=== PATIENT | female | born 1955 | race Caucasian/White ===

== ENCOUNTER 2016-08-07 13:59 | Emergency (ER) | payer BC ==
[~2016-08-07] VITALS: Ht 165.1 cm; Wt 85.2 kg
[~2016-08-07 13:59] MED LIST: GLUCTAB7 PO; SUMA100T16 PO
[2016-08-07 14:05] VITALS: TEMP 36.9; Ht 165.1 cm; Wt 85.2 kg
[2016-08-07] MEDS ORDERED: KETOROLAC TROMETHAMINE 60 MG/2 ML VIAL IM STA (14:35)
[2016-08-07] MEDS ORDERED: PROMETHAZINE HCL INJ 25 MG/ML 1 ML VIAL IM STA (14:35)
[2016-08-07] MEDS ORDERED: HYDROmorphone INJ 1 MG/ML SYR IM STA (14:35)
[2016-08-07 15:26] VITALS: BP 106/63; PULSE 78; O2SAT 94
--- NOTE | 2016-08-07 18:09 | EMERGENCY ROOM VISIT NOTE ---
ED Visit Note First contact with patient: 14:22 CHIEF COMPLAINT: Migraine headache HISTORY OF PRESENT ILLNESS: This 7-year-old female patient presented to the emergency department with a gradual onset of a severe generalized headache that started yesterday. The patient states the migraine is similar to their typical migraines. There has been associated photophobia, phonophobia, nausea and vomiting. The patient denies fever or chills recently, and there is no weakness or numbness of the extremities. There is no difficulty with speech or vision. No trauma to the head and no neck pain. The pain is severe, constant, and it is slowly increasing in severity. The patient rates the pain as sharp and 7/10. The patient attempted at home Imitrex shots, however her injector malfunctioned , and misfired the medication. This was her last dose on this refill. This is not the worst headache of the life and is similar to previous migraines. Previous imaging studies of the brain have been normal. REVIEW OF SYSTEMS: A review of systems was performed with positives and pertinent negatives listed in the history of present illness. All other systems were reviewed and are negative. ALLERGIES: No known allergies MEDICATIONS: Imitrex PMH: Chronic migraines SOCIAL HISTORY: Lives with family PHYSICAL EXAM: Vital Signs: Reviewed Nurse's notes, vital signs stable. GENERAL: White female, who appears in pain, but non toxic in appearance and in no acute distress. MENTAL STATUS: Alert, oriented, and coherent. HEENT: Normocephalic. PERRLA. EOMI. Nares patent without nuchal rigidity. Tympanic membranes pearly cervantes without erythema or effusion bilaterally. Mucous membranes moist. NECK: Supple, no nuchal rigidity, nontender, no lymphadenopathy. HEART: Regular rhythm and normal rate without murmurs, ectopy, gallops, or rubs. LUNGS: Clear to auscultation bilaterally without wheezes, rales or rhonchi. No dullness to percussion. No accessory muscle use. No retractions. SKIN: Normal. NEUROLOGICAL: Pupils are round, equal and react to light. The optic fundi are normal and the discs are flat. The patient moves all extremities well and the gait is normal. EMERGENCY DEPARTMENT COURSE: I examined the patient. The patient is not on any formal treatment plan at this facility for her migraines, although she has been seen several times in the past for similar episodes.. The patient was given 3 mg IM Dilaudid, 60 mg IM Toradol, 25 mg IM Phenergan per their usual protocol. The differential diagnosis includes acute intracranial bleed, meningitis, encephalitis, mass or mass effect, sinusitis, infection, tumor, headache, temporal arteritis and carbon monoxide exposure, and migraine. The patient was discharged home in stable condition with a male ink blender driving. Problem List Medical Problems: (1) Migraine Status: Chronic (2) Migraine Status: Resolved Current/Historical Medications Scheduled Vgqxcgcirzr-Mjdmczhwxco-Gxg C- (Glucosamine Chondroitin), 1 TAB PO QAM Sumatriptan Succinate (Imitrex), 100 MG PO PRN Sumatriptan Succinate (Imitrex Statdose), 1 SC PRN Topiramate (Topamax), 100 MG PO QAM Scheduled PRN Ibuprofen-Diphenhydramine Citr (Advil Pm), 1 TAB PO HS PRN for SLEEP/PAIN Allergies Coded Allergies: No Known Allergies (Unverified , 08/07/16) Vital Signs Date Time Temp Pulse Resp B/P Pulse Ox O2 Delivery O2 Flow Rate FiO2 08/07/16 15:26 78 16 106/63 94 Room Air 08/07/16 14:05 36.9 79 18 134/88 95 Room Air Medications Administered Medications (Trade) Dose Ordered Sig/Mk Route Start Time Stop Time Status Last Admin Dose Admin Hydromorphone HCl (Dilaudid Inj) 3 mg NOW STAT IM 08/07/16 14:35 08/07/16 14:37 DC 08/07/16 14:58 3 MG Promethazine HCl (Phenergan Inj) 25 mg NOW STAT IM 08/07/16 14:35 08/07/16 14:37 DC 08/07/16 14:59 25 MG Ketorolac Tromethamine (Toradol Inj) 60 mg NOW STAT IM 08/07/16 14:35 08/07/16 14:37 DC 08/07/16 14:58 60 MG Departure Information Impression Primary Impression: Migraine Dispostion Home / Self-Care Condition GOOD Referrals Matthew Rogers M.D. (PCP) Forms HOME CARE DOCUMENTATION FORM, IMPORTANT VISIT INFORMATION Patient Instructions My [facility] Additional Instructions You were seen and evaluated today on an emergency basis only. This is not a substitute for, or an effort to provide, complete comprehensive medical care. It is not possible to recognize and treat all injuries or illnesses in a single emergency department visit. For this reason it is recommended that you followup with your primary care physician or neurologist this week for ongoing care and evaluation. DO NOT drive, drink alcohol, operate machinery, or perform dangerous activities today. You were given medications in the ER that can affect your ability to safely function or operate a vehicle. Rest today in a quiet, peaceful, dark environment and get a full 8-10 hrs of sleep tonight. Avoid loud noises, smoke/smoking, alcohol, bright lights, stress, or physical exertion today to minimize the chance the headache may return. Continue current medications. Ibuprofen(Motrin, Advil) may be used for fever or pain. Use 600mg every six hours as needed. Take with food. Avoid using more than 2400mg in a 24 hour period. Do not use 2400mg per day for more than three consecutive days without physician direction. Prolonged inappropriate use can lead to stomach upset or ulcers. (AND/OR) Acetaminophen(Tylenol) may be used for fever or pain. Use 1000mg every six hours as needed. Avoid using more than 4000mg in a 24 hour period. Return to the ER for passing out, worsening headache, vision problems, neck stiffness/pain, fevers, vomiting, worsening of your condition, or as needed.
[2017-01-05] MEDS ORDERED: IBUP1TAB PO (09:13)
[2017-01-05] MEDS ORDERED: SUMA100T16 PO (10:05)
[2017-01-05] MEDS ORDERED: TOPI100T20 PO (10:05)
== END 2016-08-07 15:27 | disposition home or self-care (01) ==
LOC: C.EDB 14:00 → C.EDD 15:27
DX: G43.909 Migraine, unspecified, not intractable, without status migrainosus (principal); Z79.899 Other long term (current) drug therapy

== ENCOUNTER → 2016-08-20 | Outpatient (CLI) | payer BC ==
[~2016-08-20] MED LIST changes: +BUPR-83 PO; +IBUP1TAB PO; +LPT10 PO; +RSP1 PO; +SUMA6KIT2 SC; +TOPI100T20 PO
--- NOTE | 2016-08-20 13:34 | MAMMOGRAPHY REPORT ---
BILATERAL DIGITAL SCREENING MAMMOGRAM TOMOSYNTHESIS WITH CAD: 08/20/2016 TECHNIQUE: Breast tomosynthesis in addition to standard 2D mammography was performed. Current study was also evaluated with a Computer Aided Detection (CAD) system. COMPARISON: Comparison is made to exams dated: 08/19/2015 mammogram, 08/14/2014 mammogram, 04/27/2013 mammogram, 04/26/2012 mammogram, and 02/25/2015 mammogram - [facility]. BREAST COMPOSITION: The tissue of both breasts is heterogeneously dense, which may obscure small ma sses. FINDINGS: No suspicious masses, calcifications, or areas of architectural distortion are noted in e ither breast. There has been no significant interval change compared to prior exams. IMPRESSION: ACR BI-RADS CATEGORY 1: NEGATIVE There is no mammographic evidence of malignancy. A 1 year screening mammogram is recommended. The p atient will receive written notification of the results. Approximately 10% of breast cancers are not detected with mammography. A negative mammographic repor t should not delay biopsy if a clinically suggestive mass is present. Jennifer Stover M.D. ah/:08/20/2016 12:08:21 Sow Manager: Amanda ALONSO(R)(M), [facility] letter sent: Normal 1/2 BI-RADS Code: ACR BI-RADS Category 1: Negative
== END | disposition home or self-care (01) ==
LOC: C.MAMM 08:52
PROVIDERS: ATTEND Family Medicine
DX: Z12.31 Encounter for screening mammogram for malignant neoplasm of breast (principal)

== ENCOUNTER → 2016-10-27 | Outpatient (CLI) | payer BC | END | disposition home or self-care (01) | LOC: C.PAPS 08:46 | PROVIDERS: ATTEND Obstetrics & Gynecology | DX: Z01.419 Encounter for gynecological examination (general) (routine) without abnormal findings (principal); N95.2 Postmenopausal atrophic vaginitis ==

== ENCOUNTER 2017-01-05 10:54 | Emergency (ER) | payer BC ==
[~2017-01-05] VITALS: Ht 165.1 cm; Wt 84.9 kg
[~2017-01-05 10:54] MED LIST changes: -BUPR-83 PO; -LPT10 PO; -RSP1 PO; -SUMA6KIT2 SC
[2017-01-05 10:56] VITALS: TEMP 37; Ht 165.1 cm; Wt 84.9 kg
[2017-01-05] MEDS ORDERED: PROMETHAZINE HCL INJ 25 MG in SODIUM CHLORIDE 0.9% 50ML 50 ML IV STA (11:12)
[2017-01-05] MEDS ORDERED: HYDROmorphone INJ 1 MG/ML SYR IV STA ×2 (11:12→11:59)
[2017-01-05] MEDS ORDERED: KETOROLAC TROMETHAMINE 30 MG/ML VIAL IV STA (11:12)
[2017-01-05] MEDS ORDERED: SODIUM CHLORIDE 0.9% 1000ML 1,000 ML IV STA (11:12)
[2017-01-05] MEDS ORDERED: BUPR-83 PO (11:13)
[2017-01-05] MEDS ORDERED: RSP1 PO (11:14)
[2017-01-05] MEDS ORDERED: LPT10 PO (11:14)
--- NOTE | 2017-01-05 11:16 | EMERGENCY ROOM VISIT NOTE ---
History Report prepared by Julieta: Palmira Costa Under the Supervision of: Dr. Calvin Whitlock M.D. First contact with patient: 11:06 Chief Complaint: HEADACHE Stated Complaint: MIGRAINE History of Present Illness The patient is a 61 year old female who presents to the Emergency Room with complaints of a migraine starting yesterday afternoon. The patient states that her pain is also radiating to the back of her neck but that this is a normal symptom when she gets migraines. The patient denies having other symptoms. Source of History: patient Onset: yesterday afternoon Position: other (global) Quality: other (migraine ) Timing: constant Associated Symptoms: + neck pain, No fevers Review of Systems See HPI for pertinent positives & negatives. A total of 10 systems reviewed and were otherwise negative. Past Medical & Surgical Medical Problems: (1) Migraine (2) Migraine Family History Cancer Heart disease Hypertension Kidney disease Kidney stones Social History Smoking Status: Never Smoker Alcohol Use: none Marital Status: Occupation Status: unemployed Current/Historical Medications Scheduled Atorvastatin (Atorvastatin Calcium), 10 MG PO DAILY Bupropion (Wellbutrin), 200 MG PO BID Risperidone (Risperidone), 1 MG PO DAILY Sumatriptan Succinate (Imitrex), 100 MG PO PRN Sumatriptan Succinate (Imitrex Statdose), 1 SC PRN Topiramate (Topamax), 100 MG PO QAM Scheduled PRN Ibuprofen-Diphenhydramine Citr (Advil Pm), 1 TAB PO HS PRN for SLEEP/PAIN Allergies Coded Allergies: No Known Allergies (Unverified , 01/05/17) Physical Exam Vital Signs Date Time Temp Pulse Resp B/P (MAP) Pulse Ox O2 Delivery O2 Flow Rate FiO2 01/05/17 14:09 77 16 119/85 96 01/05/17 12:30 86 16 152/93 97 Room Air 01/05/17 10:56 37.0 83 18 159/97 97 Room Air Physical Exam GENERAL: Patient is a healthy-appearing well-nourished female HEAD: Normocephalic atraumatic. No evidence of meningitis or encephalitis upon examination. EYES: Ocular movements intact pupils equal and react to light OROPHARYNX mucous membranes are moist no exudates present no erythema or edema present NECK: Supple no nuchal rigidity. CHEST: Good equal expansion LUNGS: Clear and equal to auscultation CARDIAC: Normal S1 and S2 ABDOMEN: Soft nontender no guarding BACK: No CVA tenderness EXTREMITIES: No pain upon palpation normal muscle strength in all groups no clubbing cyanosis or edema NEURO: Patient is following commands and answering questions appropriately. Alert and oriented x3 Cranial Nerves 2-12 grossly intact Medical Decision & Procedures Medications Administered Medications (Trade) Dose Ordered Sig/Mk Route Start Time Stop Time Status Last Admin Dose Admin Sodium Chloride 1,000 ml @ 999 mls/hr Q1H1M STAT IV 01/05/17 11:12 01/05/17 12:12 DC 01/05/17 11:41 999 MLS/HR Ketorolac Tromethamine (Toradol Inj) 30 mg NOW STAT IV 01/05/17 11:12 01/05/17 11:14 DC 01/05/17 11:42 30 MG Promethazine HCl 25 mg/Sodium Chloride 51 ml @ 204 mls/hr NOW STAT IV 01/05/17 11:12 01/05/17 11:26 DC 01/05/17 11:41 204 MLS/HR Hydromorphone HCl (Dilaudid Inj) 1 mg NOW STAT IV 01/05/17 11:12 01/05/17 11:14 DC 01/05/17 11:42 1 MG Hydromorphone HCl (Dilaudid Inj) 1 mg NOW STAT IV 01/05/17 11:59 01/05/17 12:01 DC 01/05/17 12:19 1 MG Magnesium Sulfate (Magnesium Sulfate) 1 gm NOW STAT IV 01/05/17 11:59 01/05/17 12:01 DC 01/05/17 12:20 1 GM Dexamethasone Sodium Phosphate (Decadron Inj) 10 mg NOW ONCE IV 01/05/17 12:00 01/05/17 12:01 DC 01/05/17 12:19 10 MG ED Course 1108: Past medical records reviewed. The patient was evaluated in room A12. A complete history and physical examination was performed. 1112: Ordered Dilaudid Inj 1 mg IV, Promethazine HCl 25 mg/Sodium Chloride 51 ml @ 204 mls/hr IV, Toradol Inj 30 mg IV, Sodium Chloride 1,000 ml @ 999 mls/hr IV. 1159: Ordered Magnesium Sulfate 1 gm IV, Dilaudid Inj 1 mg IV, Decadron Inj 10 mg IV. 1240: I checked on the patient and she is feeling better. 1345: Upon reexamination the patient is resting. I discussed results and treatment plan with the patient. She verbalizes agreement and understanding. The patient is ready for discharge. Medical Decision Differential diagnosis: Etiologies such as migraine headache, meningitis, sinusitis, CO exposure, ICH, SAH, infection, tumor, headache, sinus thrombosis, arterial dissection, as well as others were entertained. This is a 61-year-old female who presents emergency department complaining of headache. The patient has no evidence of meningitis encephalitis on examination. The patient has a history of headaches in the past and is prior imaging. An IV was established, patient given Toradol, Phenergan, Dilaudid. Repeat examination revealed some improvement in the patient's symptoms. The patient was then given Dilaudid Decadron and magnesium with improvement the patient's symptoms. I do feel she can be safely discharged home for follow-up with the primary care physician patient was in agreement with the treatment plan. Medication Reconcilliation Current Medication List: was personally reviewed by me Blood Pressure Screening Patient's blood pressure: Elevated blood pressure Blood pressure disposition: Referred to PCP Impression Primary Impression: Headache Scribe Attestation The scribe's documentation has been prepared under my direction and personally reviewed by me in its entirety. I confirm that the note above accurately reflects all work, treatment, procedures, and medical decision making performed by me. Departure Information Dispostion Home / Self-Care Referrals Matthew Rogers M.D. (PCP) Forms HOME CARE DOCUMENTATION FORM, IMPORTANT VISIT INFORMATION, School Instructions, Work Instructions Patient Instructions Headache Pain, My [facility] Additional Instructions You were found to have an elevated blood pressure today (>120 sytolic or >90 diastolic). Per medicare guidelines, you need to follow up with this blood pressure screening with your Primary Care Physician (PCP). For a new PCP call [phone]. You received narcotic or benzodiazepene medication while in the emergency room today. Do not drive, operate heavy machinery, or drink alcohol under the influence of this medication. You have been examined and treated today on an emergency basis only. This is not a substitute for, or an effort to provide, complete comprehensive medical care. It is impossible to recognize and treat all injuries or illnesses in a single emergency department visit. It is therefore important that you follow up closely with Dr Rogers. Call as soon as possible for an appointment. Thank you for your time and consideration. I look forward to speaking with you again soon. Please don't hesitate to call us if you have any questions. Problem Qualifiers Primary Impression: Headache Headache type: unspecified Headache chronicity pattern: unspecified pattern Intractability: not intractable Qualified Codes: R51 - Headache
[2017-01-05] MEDS ORDERED: MAGNESIUM SULFATE 1GM / D5W 1 GM BAG IV STA (11:59)
[2017-01-05] MEDS ORDERED: DEXAMETHASONE SOD INJ 10 MG/ML VIAL IV ONE (12:00)
[2017-01-05 14:09] VITALS: BP 119/85; PULSE 77; O2SAT 96
[2017-01-05] MEDS ORDERED: SUMA6KIT2 SC (17:08)
== END 2017-01-05 14:10 | disposition home or self-care (01) ==
LOC: C.EDB 10:55 → C.EDA 14:10
DX: R51 Headache (principal); Z80.9 Family history of malignant neoplasm, unspecified; Z82.49 Family history of ischemic heart disease and other diseases of the circulatory system; Z84.1 Family history of disorders of kidney and ureter; Z79.899 Other long term (current) drug therapy

== ENCOUNTER → 2017-06-22 | Outpatient (CLI) | payer BC ==
[~2017-06-22] MED LIST changes: +BUPR-83 PO; -GLUCTAB7 PO; +LPT10 PO; +RSP1 PO; +SUMA6KIT2 SC
--- NOTE | 2017-06-22 11:30 | DIAGNOSTIC IMAGING REPORT ---
L SHOULDER MIN 2 VIEWS CLINICAL HISTORY: Left shoulder pain. COMPARISON: None FINDINGS: Alignment of the left shoulder is anatomic. No fracture or suspicious lesion is identified. Joint spaces are preserved. IMPRESSION: No significant abnormality of the left shoulder. Electronically signed by: Guru Barron M.D. 06/22/2017 11:28 AM Dictated Date/Time: 06/22/2017 11:27 AM
== END | disposition home or self-care (01) ==
LOC: C.RDSM 11:08
PROVIDERS: ATTEND Internal Medicine
DX: M25.512 Pain in left shoulder (principal)

== ENCOUNTER → 2017-08-23 | Outpatient (CLI) | payer BC ==
--- NOTE | 2017-08-24 07:47 | MAMMOGRAPHY REPORT ---
BILATERAL DIGITAL SCREENING MAMMOGRAM TOMOSYNTHESIS WITH CAD: 08/23/2017 CLINICAL HISTORY: Routine screening. TECHNIQUE: Breast tomosynthesis in addition to standard 2D mammography was performed. Current study was also evaluated with a Computer Aided Detection (CAD) system. COMPARISON: Comparison is made to exams dated: 08/20/2016 mammogram, 08/19/2015 mammogram, 08/14/2014 m ammogram, 04/27/2013 mammogram, 04/26/2012 mammogram, and 01/19/2011 mammogram - [facility]. BREAST COMPOSITION: The tissue of both breasts is heterogeneously dense, which may obscure small mas ses. FINDINGS: The parenchymal pattern is unchanged. No developing mass, architectural distortion or clus ter of suspicious microcalcifications is seen in either breast. IMPRESSION: ACR BI-RADS CATEGORY 2: BENIGN There is no mammographic evidence of malignancy. A 1 year screening mammogram is recommended. The pa tient will receive written notification of the results. Approximately 10% of breast cancers are not detected with mammography. A negative mammographic report should not delay biopsy if a clinically suggestive mass is present. Brook Eduardo M.D. ay/:08/23/2017 15:51:37 Materials Management Clerk: Roxana ALONSO(R)(M), [facility] letter sent: Normal 1/2 BI-RADS Code: ACR BI-RADS Category 2: Benign
== END | disposition home or self-care (01) ==
LOC: C.MAMM 09:22
PROVIDERS: ATTEND Family Medicine
DX: Z12.31 Encounter for screening mammogram for malignant neoplasm of breast (principal)

== ENCOUNTER 2017-12-26 17:06 | Emergency (ER) | payer BC ==
[~2017-12-26] VITALS: Ht 165.1 cm; Wt 90.4 kg
[~2017-12-26 17:06] MED LIST changes: -SUMA6KIT2 SC
[2017-12-26 17:08] VITALS: TEMP 36.9; Ht 165.1 cm; Wt 90.4 kg
[2017-12-26] MEDS ORDERED: SUMA6KIT2 SC (17:08)
[2017-12-26] MEDS ORDERED: KETOROLAC TROMETHAMINE 30 MG/ML VIAL IV STA (17:20)
[2017-12-26] MEDS ORDERED: PROCHLORPERAZINE 5 MG/ML 2 ML VIAL IV STA (17:20)
[2017-12-26] MEDS ORDERED: DiphenhydrAMINE HCL 50 MG/ML VIAL IV STA (17:20)
[2017-12-26] MEDS ORDERED: SODIUM CHLORIDE 0.9% 1000ML 1,000 ML IV STA (17:22)
[2017-12-26] MEDS ORDERED: BUPR-269 PO (17:44)
[2017-12-26] MEDS ORDERED: FAMO20TA11 PO (17:45)
[2017-12-26] MEDS ORDERED: MoRPHine SULFATE 10 MG/ML CARP/VIAL IV STA (18:35)
[2017-12-26 18:50] VITALS: BP 113/62; PULSE 80; O2SAT 94
--- NOTE | 2017-12-26 20:51 | EMERGENCY ROOM VISIT NOTE ---
History Report prepared by Julieta: Jessenia Maldonado Under the Supervision of: Dr. Orlin Gonzalez D.O. 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 The patient has a history of migraines and gets about 4 every month. She notes this feels similar to her previous migraines and it is not the worst headache of her life. She controls her migraines with Wellbutrin and other medications and takes Imitrex when the pain begins. Headache came on gradually and progressively worsened. No weakness or numbness in her arms or legs. Pt denies change in vision, fevers, chest pain, shortness of breath, nausea, vomiting, diarrhea, and pain with urination. 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 A total of 10 systems reviewed and were otherwise negative. Past Medical & Surgical Medical Problems: (1) Migraine (2) Migraine Family History Cancer Heart disease Hypertension Kidney disease Kidney stones Social History Smoking Status: Former Smoker Alcohol Use: none Marital Status: Occupation Status: unemployed Current/Historical Medications Scheduled Atorvastatin (Lipitor), 10 MG PO DAILY Bupropion Hcl Sr (Bupropion Hcl Sr), 200 MG PO BID Famotidine (Pepcid), 20 MG PO DAILY Risperidone (Risperidone), 1 MG PO DAILY Sumatriptan Succinate (Imitrex), 100 MG PO PRN Sumatriptan Succinate (Imitrex Statdose), 1 SC PRN Topiramate (Topamax), 100 MG PO QAM Allergies Coded Allergies: No Known Allergies (Unverified , 01/05/17) Physical Exam Vital Signs Date Time Temp Pulse Resp B/P (MAP) Pulse Ox O2 Delivery O2 Flow Rate FiO2 12/26/17 18:50 80 20 113/62 94 Room Air 12/26/17 17:51 93 20 150/85 94 Room Air 12/26/17 17:08 36.9 99 20 124/71 94 Room Air Physical Exam GENERAL: Sitting up in bed holding an ice pack over left head, alert, well appearing, well nourished, no distress, non-toxic EYE EXAM: normal conjunctiva. PERRL and EOM's intact. OROPHARYNX: no exudate, no erythema, lips, buccal mucosa, and tongue normal and mucous membranes are moist NECK: supple, no nuchal rigidity, no adenopathy, non-tender LUNGS: Clear to auscultation. Normal chest wall mechanics HEART: Tachycardic, no murmurs, S1 normal and S2 normal ABDOMEN: abdomen soft, non-tender, normo-active bowel sounds, no masses, no rebound or guarding. BACK: Back is symmetrical on inspection and there is no deformity, no midline tenderness, no CVA tenderness. SKIN: no rashes and no bruising UPPER EXTREMITIES: upper extremities are grossly normal. LOWER EXTREMITIES: No pitting edema. NEURO EXAM: Normal sensorium, cranial nerves II-XII intact, normal speech, no weakness of arms, no weakness of legs. No drift. Finger to nose intact. Gross sensation intact. Ambulates without difficulty. Medical Decision & Procedures Medications Administered Medications (Trade) Dose Ordered Sig/Mk Route Start Time Stop Time Status Last Admin Dose Admin Prochlorperazine Edisylate (Compazine Inj) 10 mg NOW STAT IV 12/26/17 17:20 12/26/17 17:21 DC 12/26/17 17:48 10 MG Ketorolac Tromethamine (Toradol Inj) 30 mg NOW STAT IV 12/26/17 17:20 12/26/17 17:21 DC 12/26/17 17:48 30 MG Diphenhydramine HCl (Benadryl Inj) 50 mg NOW STAT IV 12/26/17 17:20 12/26/17 17:21 DC 12/26/17 17:48 50 MG Sodium Chloride 1,000 ml @ 999 mls/hr Q1H1M STAT IV 12/26/17 17:22 12/26/17 18:22 DC 12/26/17 17:48 999 MLS/HR Morphine Sulfate (MoRPHine SULFATE INJ) 6 mg NOW STAT IV 12/26/17 18:35 12/26/17 18:37 DC 12/26/17 18:49 6 MG ED Course ED COURSE: Vital signs were reviewed and showed HTN situationally The patients medical record was reviewed The above diagnostic studies were performed and reviewed. ED treatments and interventions as stated above. 1712: The patient was evaluated in room A11. A complete history and physical examination was performed. 1720 :Ordered Benadryl Inj 50 mg IV, Toradol Inj 30 mcg IV, Compazine Inj 10 mg IV 172: Ordered Sodium Chloride 1000 ml @ 999 mls/hr IV 1834: I checked on the patient at this time. Her headache has improved slightly. 183: Ordered Morphine Sulfate 6 mg IV 1908: Upon reevaluation, the patient is feeling better. I discussed my findings with the patient and she understands and agrees with the treatment plan. Based on the patients age, coexisting illnesses, exam and lab findings the decision to treat as an outpatient was made. The patient remained stable while under my care. The patient appeared well at the time of discharge. Medical Decision Differential Diagnosis includes but is not limited to headache, tension headache , cluster headache, migraine, subarachnoid hemorrhage, meningitis, mass, central venous thrombus, concussion, trauma and epidural/subdural hemorrhage. Patient is a 62-year-old female who presents the ER for sharp stabbing left- sided head pain which is consistent with her previous migraines. It is unchanged in any way shape or form. No fevers. No neck pain. No nuchal rigidity. No signs of meningitis or encephalitis. This is not the worst headache of her life. To come on gradually. She was given IV fluids, Compazine , Benadryl and Toradol. Repeatedly asked for narcotics and became very agitated. She was given a small dose of morphine and was discharged follow-up with PCP as an outpatient. Instructed not to drive for the remainder the day. Discussed with Pt concerning signs and symptoms to watch out for. Pt was instructed to follow up with their PCP and discussed with the patient their option to return to the ED at anytime for persistent or worsening symptoms. The appropriate anticipatory guidance and out-patient management, including indications for return to the emergency department, were explained at length to the patient and understood. Medication Reconcilliation Current Medication List: was personally reviewed by me Blood Pressure Screening Patient's blood pressure: Elevated blood pressure Blood pressure disposition: Elevated BP felt to be situational Impression Primary Impression: Headache Scribe Attestation The scribe's documentation has been prepared under my direction and personally reviewed by me in its entirety. I confirm that the note above accurately reflects all work, treatment, procedures, and medical decision making performed by me. Departure Information Dispostion Home / Self-Care Referrals Matthew Rogers M.D. (PCP) Forms HOME CARE DOCUMENTATION FORM, IMPORTANT VISIT INFORMATION, WORK / SCHOOL INSTRUCTIONS Patient Instructions My [facility] Additional Instructions Please follow up with your primary care doctor with in the next 24 hours. Any worsening of your symptoms, please return to the ED immediately. This includes any fevers greater than 100.4, neck pain, confusion, worsening pain, chest pain , shortness breath, persistent nausea, vomiting, unable to eat or drink, or any other concerning signs or symptoms from your standpoint. You were given medications during this visit that will inhibit your ability to drive, operate machinery and work. Please do NOT drive, operate machinery, drink alcohol or work for the next 12hrs. Problem Qualifiers Primary Impression: Headache Headache type: unspecified Headache chronicity pattern: acute headache Intractability: not intractable Qualified Codes: R51 - Headache
== END 2017-12-26 19:13 | disposition home or self-care (01) ==
LOC: C.EDB 17:08 → C.EDA 19:13
DX: R51 Headache (principal); Z87.891 Personal history of nicotine dependence

== ENCOUNTER 2020-05-09 15:23 | Inpatient (IN) ==
[2020-05-09] MEDS ORDERED: ASPIRIN CHEW 324 MG PO STA (16:34)
[2020-05-09 17:07] LABS: Basophils # (auto) 0.02 K/uL (0-0.2); Basophils % (auto) 0.2 %; Eosinophils # (auto) 0.06 K/uL (0-0.5); Eosinophils % (auto) 0.6 %; Hematocrit (blood only) 41.8 % (37-47); Hemoglobin 13.9 g/dL (12.0-16.0); Immature Granulocytes # (auto) 0.02 K/uL (0.00-0.02); Immature Granulocytes % (auto) 0.2 %; Lymphocytes # (auto) 2.29 K/uL (1.2-3.4); Lymphocytes % (auto) 23.7 %; Mean Corpuscular Hgb Conc 33.3 g/dL (32-36); Mean Corpuscular Volume 90.3 fL (80-100); Mean Platelet Volume 10.2 fL (7.4-10.4); Monocytes # (auto) 0.84 K/uL (0.11-0.59); Monocytes % (auto) 8.7 %; Neutrophils # (auto) 6.44 K/uL (1.4-6.5); Neutrophils % (auto) 66.6 %; Platelet Count 340 K/uL (130-400); RDW Coefficient of Variation 12.9 % (11.5-14.5); RDW Standard Deviation 42.7 fL (36.4-46.3); Red Blood Count 4.63 M/uL (4.2-5.4); White Blood Count 9.67 K/uL (4.8-10.8)
[2020-05-09 17:19] LABS: INR 1.2 (0.9-1.1); Partial Thromboplastin Time 28.6 Seconds (21.0-31.0); Prothrombin Time 12.2 Seconds (9.0-12.0)
--- NOTE | 2020-05-09 17:28 | XRay Report ---
TWO VIEW CHEST CLINICAL HISTORY: Atypical chest pain. FINDINGS: PA and lateral chest radiographs are compared to study dated 07/11/2008. The cardiomediastin al silhouette is unremarkable. There is mild elevation of the right hemidiaphragm. Linear atelectasis /scarring is seen in the right upper lung. No airspace consolidation or pleural effusion is identifie d. There is no pneumothorax. The skeletal structures are osteopenic. The bony thorax appears intact. IMPRESSION: No acute cardiopulmonary abnormality. ACT 112: Negative or not required by law. Electronically signed by: Antonino Gómez M.D. 05/09/2020 5:27 PM
[2020-05-09 17:31] LABS: BUN Creatinine Ratio 18.4 (10-20); Creatinine Clr Calc Pharmacy 55.7 ml/min; Est GFR (African American) 59.3; Est GFR (Non-African American) 51.1
[2020-05-09 17:39] LABS: Troponin I 2.5 ng/ml (0-0.045)
[2020-05-09] MEDS ORDERED: Heparin IV Low Dose WITH Bolus STA (17:42)
--- NOTE | 2020-05-09 18:00 | History & Physical Report ---
Date of Service May 09, 2020 Assessment & Plan (1) NSTEMI (non-ST elevated myocardial infarction): - Admit to tele - Started on heparin drip and given full dose aspirin in the ER - Trend cardiac biomarkers, initial set 2.5 with acute onset of chest pain last evening which then recurred on exertion (ie. shoveling snow) - EKG reviewed as above showing possible ST wave changes in inferior-lateral leads, compared to previous EKG in 2008 there is very minimal changes. - Check 2 D echo - Consult cardiology, Dr. Tyson - Check A1c and lipid panel with a.m. labs for completeness - Continue high intensity statin therapy - PT/OT consulted (2) Hypercholesterolemia: - Resume atorvastatin 10 mg daily, increase statin to high intensity statin, atorvastatin 80 mg - Lipid panel with a.m. labs (3) Chronic kidney disease, stage 3: - Creatinine 1.14, BUN 21 on admission, appears to be around baseline. - Trend with a.m. BMP (4) Migraine: - History of such, uses Imitrex as an outpatient (5) Depression with anxiety: - Continue Wellbutrin 200 mg twice daily, risperidone 1 mg QAM DVT PPx: - teds, heparin drip as above CODE: Full code Dispo: From home, likely to remain in the hospital x 1-2 days, CM to assist with discharge planning History of Present Illness Primary Care Provider: Matthew Rogers MD This is a 64 yo F with PMHx of CKD stage III, HLD, migraine headaches, depression and anxiety who presents to the ER with chest pain. She developed the pain last evening while she was putting some things away in her house, developed noticeable pain in the right arm, which then moved up into her neck and then p roceeded to turn into tingling of both arms around 5pm and lasted until 8pm. After than point pain seemed to lessen as she had been resting and went to bed. Pt was wearing a fit bit last night and noticed her HR was elevated. She took two baby aspirin last night in case this was something with her heart, also with inclement snowy weather with 18+ inches of snow last night, and the COVID pandemic, was fearful that that she could not get here. The patient was awake this morning snow shoveling where she had recurrence of the R shoulder pain around 12:30-1:00pm, characterized as a sharp, constant pain, and then drove herself to the ER. Pt feels like she cannot take a deep breath but denies shortness of breath. Patient is chest pain-free on arrival to the ER. Denies other acute complaints. Troponin elevated at 2.5 on admission, patient was started on heparin drip and given a full dose aspirin in the ER. Allergies Allergy/AdvReac Type Severity Reaction Status Date / Time No Known Allergies Allergy Unverified 05/09/20 16:29 Home Medications Medication Instructions Recorded Confirmed Type famotidine 20 mg tablet 20 mg PO QAM #180 tab 01/13/19 05/09/20 History risperidone 1 mg tablet 1 mg PO QAM tab 01/13/19 05/09/20 History sumatriptan succinate 100 mg tablet 100 mg PO UD PRN #9 tab 01/13/19 05/09/20 History sumatriptan succinate 6 mg/0.5 mL 6 mg SUBCUT .INJECT 0.5ML AT ONSE 02/10/19 05/09/20 History subcutaneous solution #2 ml bupropion HCl 200 mg PO BID 05/09/20 05/09/20 History aspirin 81 mg PO QAM #30 tab 05/11/20 Rx atorvastatin 80 mg PO QAM #60 tab 05/11/20 Rx clopidogrel 75 mg PO QAM #30 tab 05/11/20 Rx metoprolol succinate 50 mg PO PM #30 tab 05/11/20 Rx Past Med/Surg History Medical History (Updated 05/11/20 @ 11:58 by Mario Alberto Soto) Depression with anxiety HLD (hyperlipidemia) Migraine Surgical History (Updated 01/13/19 @ 09:31 by Aj Melendez) H/O tooth extraction H/O wrist surgery History of colposcopy Hx of tonsillectomy Family History (Updated 05/09/20 @ 18:37 by Debbie Barrow PA-C) Unknown Migraine Epilepsy Thyroid disorder Heart disease Angina pectoris Kidney disease Arthritis Breast cancer Father Migraine Dementia Mother CHF (congestive heart failure) Stroke Sister No problems noted. Social History (Updated 05/09/20 @ 18:37 by Debbie Barrow PA-C) Smoking Status: Former smoker Hx Alcohol Use: No Hx Substance Use: No Preferred Language: [place]an Communication Ability: Effective Resistance Brazer Required: No Beliefs That Will Affect Care: None Current Living Situation: Spouse Feels Safe at Home: Yes Assistive Devices: Glasses Review of Systems Review of Systems: Constitutional: No fever, sweats or chills Eyes: No diplopia, no worsening or blurred vision ENT: normal hearing, no trouble swallowing Respiratory: + Feels like cannot take a deep breath, No cough, sputum, dyspnea at rest or on exertion Cardiovascular: See HPI. No chest pain, tightness or palpitations Abdomen: No pain, nausea, vomiting, diarrhea or constipation Musculoskeletal: No joint pain, calf pain, swelling Neurologic: No weakness, numbness/tingling, or balance problems Psychiatric: No anxiety or depression Skin: No rash or itch Physical Exam Physical Exam: General: awake, alert, no apparent distress Head: Normocephalic, atraumatic ENT: PERRL, EOMI, no pharyngeal exudate, mucous membranes moist Chest: Clear to auscultation, on room air, no adventitious breath sounds Cardiac: Regular rate and rhythm, no murmur, no JVD, normal peripheral pulses, good capillary refill Abdominal: NABS x 4 quadrants, soft, nondistended, nontender to palpation, no rebound or guarding Extremities: Normal inspection, no peripheral edema or erythema, calfs nontender to palpation Psych: Normal mood and affect Neuro: AAO x 3, strength intact bilaterally and rated 5/5, no motor deficits, speech is clear, no peripheral sensory deficits Results & Data Results & Data ([facility]) Vital Signs (Past 12 Hours) Vital Signs Temp Pulse Resp BP Pulse Ox 05/09/20 17:01 95 05/09/20 16:58 82 15 127/84 94 05/09/20 15:28 36.9 C 95 H 18 159/90 H 98 Diagnostic Findings TWO VIEW CHEST CLINICAL HISTORY: Atypical chest pain. FINDINGS: PA and lateral chest radiographs are compared to study dated 07/11/2008. The cardiomediastinal silhouette is unremarkable. There is mild elevation of the right hemidiaphragm. Linear atelectasis/scarring is seen in the right upper lung. No airspace consolidation or pleural effusion is identified. There is no pneumothorax. The skeletal structures are osteopenic. The bony thorax appears intact. IMPRESSION: No acute cardiopulmonary abnormality. ECG Rhythm: normal sinus Additional Comments: Possible ST wave elevations in the inferior lateral leads. Supervising Physician Co-Signing Physician Notes Attending addendum: I have physically seen this patient, have supervised the SANGEETHA's activities, and agree with the H&P unless as otherwise noted. Assessment and Plan: Non-STEMI- The patient will be admitted to telemetry for serial cardiac enzymes, serial EKG's, cardiac rhythm monitoring and a 2-D echocardiogram with Dopplers. Heparin drip standard protocol. Given aspirin 324 mg in the ED, will continue 81 mg every morning. Check a fasting lipid panel and hemoglobin A1c Consult cardiology Hyperlipidemia- Place on high intensity statin, atorvastatin 80 mg every morning, with first dose tonight Depression with anxiety- Continue Wellbutrin and risperidone Remainder of orders and notations as noted PG Care Time/CCT Total # of Minutes Spent Total Time Spent with Patient: Total time spent is greater than 50% in coordination of care (as documented) at patient's floor/unit and/or counseling patient: Coding Level of Care Code 95136 Initial Inpt Care Lvl 3 Diagnoses NSTEMI (non-ST elevated myocardial infarction) I21.4 Hypercholesterolemia E78.00 Chronic kidney disease, stage 3 N18.3 Migraine G43.909 Depression with anxiety F41.8
[2020-05-09] MEDS ORDERED: HEPARIN SOD (PORCINE) 1000 UNIT/ML 10 ML VIAL ONE (18:11)
[2020-05-09] MEDS: HEPARIN SODIUM/DEXTROSE 25,000 UNITS/500 ML BAG IV SCH (18:29)
[2020-05-09] MEDS ORDERED: ONDANSETRON INJ 2 MG/ML 2 ML VIAL IV PRN (20:16)
--- NOTE | 2020-05-09 20:25 | Emergency Department Note ---
History of Present Illness General Chief Complaint: Chest Pain Stated Complaint: CHEST PAIN, PAIN GOING DOWN ARMS, SOB Time Seen by Provider: 05/09/20 16:04 History of Present Illness Provider Complaint: chest pain Onset (ago): day(s) 2 Duration: intermittent and now resolved Onset: during exertion (After shoveling her driveway) Pain Location: substernal Pain Radiation: none Severity: mild Current Pain Intensity: 0 Quality: + tightness Relieved By: + nothing Exacerbated By: + exertion (After shoveling driveway) Context: no recent illness, no recent surgery, no recent immobilization, no recent travel, no trauma/injury, no new medications and no history of DVT/PE Associated symptoms: + dyspnea and + palpitations; no nausea, no vomiting, no diaphoresis, no syncope, no fever, no cough and no leg swelling Home Medications Medication Instructions Recorded Confirmed Type atorvastatin 10 mg tablet 10 mg PO QAM #90 tab 01/13/19 05/09/20 History famotidine 20 mg tablet 20 mg PO QAM #180 tab 01/13/19 05/09/20 History risperidone 1 mg tablet 1 mg PO QAM tab 01/13/19 05/09/20 History sumatriptan succinate 100 mg tablet 100 mg PO UD PRN #9 tab 01/13/19 05/09/20 History sumatriptan succinate 6 mg/0.5 mL 6 mg SUBCUT .INJECT 0.5ML AT ONSE 02/10/19 05/09/20 History subcutaneous solution #2 ml bupropion HCl 200 mg PO BID 05/09/20 05/09/20 History Allergies Allergy/AdvReac Type Severity Reaction Status Date / Time No Known Allergies Allergy Unverified 05/09/20 16:29 Past Med/Surg History Medical History (Updated 05/09/20 @ 20:26 by Angel Edgar) HLD (hyperlipidemia) Surgical History (Updated 01/13/19 @ 09:31 by Aj Melendez) H/O tooth extraction H/O wrist surgery History of colposcopy Hx of tonsillectomy Family History (Updated 05/09/20 @ 18:37 by Debbie Barrow PA-C) Unknown Migraine Epilepsy Thyroid disorder Heart disease Angina pectoris Kidney disease Arthritis Breast cancer Father Migraine Dementia Mother CHF (congestive heart failure) Stroke Sister No problems noted. Social History (Updated 05/09/20 @ 18:37 by Debbie Barrow PA-C) Smoking Status: Former smoker Hx Alcohol Use: No Hx Substance Use: No Preferred Language: [place] [employer] Analyst Required: No Beliefs That Will Affect Care: None Current Living Situation: Spouse Feels Safe at Home: Yes Safety Concerns: Feels Safe At This Time Assistive Devices: Glasses Review of Systems A total of 10 systems reviewed and were otherwise negative Physical Exam Vital Signs Vital Signs - 24 hr 05/09/20 15:28 05/09/20 16:58 05/09/20 17:01 Temperature 36.9 C Temperature Source Oral Pulse Rate 95 H 82 Respiratory Rate 18 15 Respiratory Effort / Characteristics Non-Labored Respiratory Depth Normal Blood Pressure 159/90 H 127/84 Blood Pressure Mean 113 98 Pulse Oximetry 98 94 95 Oxygen Delivery Method Room Air Room Air Room Air Sepsis Recent Fever Within 48 Hours No Sepsis New/Unexplained Change in Mental Status No Sepsis Action Taken by Nursing No Action Required Physical Exam GENERAL: She is oriented to person, place, and time. She appears well-developed and well-nourished. She does not appear distressed. HENT: Exam performed. -Head: Normocephalic and atraumatic. -Right Ear: External ear normal. No mastoid tenderness. -Left Ear: External ear normal. No mastoid tenderness. -Mouth/Throat: The oropharynx is clear and moist. No trismus in the jaw. No dental abscesses or uvula swelling. No oropharyngeal exudate or tonsillar abscesses. EYES: Conjunctivae and EOM are normal. Pupils are equal, round, and reactive to light. Right eye exhibits no discharge. Left eye exhibits no discharge. No scleral icterus. NECK: Normal range of motion. Neck supple. No JVD present. No spinous process tenderness present. No carotid bruit present. No rigidity. No tracheal deviation and normal range of motion present. No Brudzinski's sign and no Kernig's sign noted. CV: Normal rate, regular rhythm, normal heart sounds and intact distal pulses. There is no peripheral edema. Palpable radial pulses bue. PULM/CHEST: Effort normal and breath sounds normal. No respiratory distress. No stridor. She has no wheezes. She has no rales. -Chest Wall: She exhibits no tenderness. ABD: The abdomen is soft. Bowel sounds are normal. She has no distension. No mass is present. There is no tenderness. There is no rebound, no guarding, no Zuñiga's sign and no tenderness at McBurney's point. Rovsig negative MUSC/SKEL: Normal range of motion. There is no peripheral edema, tenderness or deformity. LYMPH: No cervical adenopathy. NEURO: She is alert and oriented to person, place, and time. She has normal strength. No cranial nerve deficit or sensory deficit. Coordination and gait normal. GCS eye subscore is 4. GCS verbal subscore is 5. GCS motor subscore is 6. Cerebellar tests wnl. SKIN: Skin is warm and dry. She is not diaphoretic. PSYCH: She has a normal mood and affect. Behavior is normal. Judgment and thought content normal. Course Course 1604: The patient was evaluated in room C11. A complete history and physical exam was performed. Cardiac monitoring: An order was placed for continuous cardiac monitoring. The monitor shows a rate of [] with [] rhythm 1746: Vital signs stable. Patient reports no chest pain at this time while at rest. Patient's troponin is elevated at 2.5. Patient will be started on hep royer for NSTEMI. [facility] hospitalist Dr. Benitez notified. Administered Medications Heparin Sodium/Dextrose (Heparin Sodium/Dextrose) 25,000 units in 500 mls @ 17 mls/hr IV .Q24H [facility]; Protocol Stop: 06/08/20 17:44 Last Admin: 05/09/20 18:29 Dose: 850 units/hr, 17 mls/hr Documented by: [id number] Cosigned by: [id number] Discontinued Medications Aspirin (Aspirin Chew 324 Mg) 324 mg PO NOW STA Stop: 05/09/20 16:35 Last Admin: 05/09/20 17:00 Dose: 324 mg Documented by: [id number] Heparin Sodium (Porcine) (Heparin Sod (Porcine) 1000 Unit/Ml 10 Ml Vial) Confirm Administered Dose 10,000 units .ROUTE .STK-MED ONE Stop: 05/09/20 18:12 Last Admin: 05/09/20 18:34 Dose: Not Given Documented by: [id number] Heparin Sodium/Dextrose (Heparin Iv Low Dose With Bolus) 1 ea N/A NOW [facility]; Protocol Stop: 05/09/20 17:43 Last Admin: 05/09/20 18:30 Dose: 1 ea Documented by: [id number] Medical Decision Making Laboratory Data Result diagrams: 05/09/20 16:50 05/09/20 16:50 Labs: Lab Results 05/09/20 05/09/20 05/09/20 Range/Units 16:50 16:50 16:50 WBC 9.67 (4.8-10.8) K/uL RBC 4.63 (4.2-5.4) M/uL Hgb 13.9 (12.0-16.0) g/dL Hct 41.8 (37-47) % MCV 90.3 (80-100) fL MCH 30.0 (25-34) pg MCHC 33.3 (32-36) g/dL RDW Std Deviation 42.7 (36.4-46.3) fL RDW Coeff of Della 12.9 (11.5-14.5) % Plt Count 340 (130-400) K/uL MPV 10.2 (7.4-10.4) fL Immature Gran % (Auto) 0.2 % Neut % (Auto) 66.6 % Lymph % (Auto) 23.7 % Murray % (Auto) 8.7 % Eos % (Auto) 0.6 % Baso % (Auto) 0.2 % Neut # (Auto) 6.44 (1.4-6.5) K/uL Lymph # (Auto) 2.29 (1.2-3.4) K/uL Murray # (Auto) 0.84 H (0.11-0.59) K/uL Eos # (Auto) 0.06 (0-0.5) K/uL Baso # (Auto) 0.02 (0-0.2) K/uL Immature Gran # (Auto) 0.02 (0.00-0.02) K/uL PT 12.2 H (9.0-12.0) Seconds INR 1.2 H (0.9-1.1) APTT 28.6 (21.0-31.0) Seconds PTT Ratio 1.0 Sodium 139 (136-145) mmol/L Potassium 4.0 (3.5-5.1) mmol/L Chloride 106 (98-107) mmol/L Carbon Dioxide 27 (21-32) mmol/L Anion Gap 6.0 (3-11) BUN 21 H (7-18) mg/dl Creatinine 1.14 (0.6-1.2) mg/dl Est Cr Clr Drug Dosing 55.7 ml/min Est GFR ( Amer) 59.3 Est GFR (Non-Af Amer) 51.1 BUN/Creatinine Ratio 18.4 (10-20) Glucose 117 H (70-99) mg/dl Calcium 9.0 (8.5-10.1) mg/dl Troponin I 2.500 H* (0-0.045) ng/ml Lipase 170 (73-393) U/L Imaging Data Chest x-ray: Radiologist's impression: TWO VIEW CHEST CLINICAL HISTORY: Atypical chest pain. FINDINGS: PA and lateral chest radiographs are compared to study dated 07/11/2008. The cardiomediastinal silhouette is unremarkable. There is mild elevation of the right hemidiaphragm. Linear atelectasis/scarring is seen in the right upper lung. No airspace consolidation or pleural effusion is identified. There is no pneumothorax. The skeletal structures are osteopenic. The bony thorax appears intact. IMPRESSION: No acute cardiopulmonary abnormality. ACT 112: Negative or not required by law. Electronically signed by: Antonino Gómez M.D. 05/09/2020 5:27 PM Dictated: 05/09/201725Transcribed: 05/09/201725 ECG Data Indication: chest pain Rate (beats per minute): 90 Rhythm: normal sinus Findings: no ST depression, no T-wave inversion and no ST elevation Additional Comments: [place] QRS and QTc intervals within normal limits MDM Narrative Vital signs stable. Patient reports no chest pain at this time while at rest. Patient's troponin is elevated at 2.5. Patient will be started on heparin for NSTEMI. [facility] hospitalist Dr. Benitez notified. Impression & Plan NSTEMI (non-ST elevated myocardial infarction) Critical Care Time Critical Care Time: Yes Total Critical Care Time: 63 I have personally spent greater than 63 minutes of critical care time in the direct management of this patient. This includes bedside care, interpretation of diagnostic studies, and testing, discussion with consultants, patient, and family members, and other required patient management activities. This 63 minutes is in excess of all separately billable procedures. Discharge Plan Visit Data Chief Complaint: Chest Pain Stated Complaint: CHEST PAIN, PAIN GOING DOWN ARMS, SOB ED Provider: Angel Edgar Discharge Problem: NSTEMI (non-ST elevated myocardial infarction) Patient Disposition: Admitted As Inpatient Discharge Instructions Interventions: ED Discharge Assessment Last Done: 05/09/20 19:32
[2020-05-09] MEDS: buPROPion SR 100 MG TABCR PO SCH (22:20)
[2020-05-09] MEDS ORDERED: Nursing to Pharmacy Communication SCH (22:30)
[2020-05-10 01:03] LABS: Partial Thromboplastin Ratio 1.4; Partial Thromboplastin Time 39.9 Seconds (21.0-31.0)
[2020-05-10 06:41] LABS: Hematocrit (blood only) 42.6 % (37-47); Hemoglobin 13.8 g/dL (12.0-16.0); Mean Corpuscular Hemoglobin 29.4 pg (25-34); Mean Corpuscular Hgb Conc 32.4 g/dL (32-36); Mean Corpuscular Volume 90.8 fL (80-100); Mean Platelet Volume 10.8 fL (7.4-10.4); Platelet Count 337 K/uL (130-400); RDW Coefficient of Variation 13.3 % (11.5-14.5); RDW Standard Deviation 44.4 fL (36.4-46.3); Red Blood Count 4.69 M/uL (4.2-5.4); White Blood Count 6.56 K/uL (4.8-10.8)
[2020-05-10 06:56] LABS: Estimated Average Glucose 108 mg/dl; Hemoglobin A1C 5.4 % (4.5-5.6)
[2020-05-10 07:22] LABS: Albumin Level 3.7 gm/dl (3.4-5.0); BUN Creatinine Ratio 15.5 (10-20); Calcium 8.7 mg/dl (8.5-10.1); Creatinine Clr Calc Pharmacy 63.6 ml/min; Est GFR (African American) 70.3; Est GFR (Non-African American) 60.6; Magnesium 2.2 mg/dl (1.8-2.4); Potassium 3.7 mmol/L (3.5-5.1)
[2020-05-10 07:38] LABS: Albumin Globulin Ratio 1.1 (0.9-2); Bilirubin,Total 0.3 mg/dl (0.2-1); Globulin 3.3 gm/dl (2.5-4.0); Troponin I 1.05 ng/ml (0-0.045)
[2020-05-10] MEDS: buPROPion SR 100 MG TABCR PO SCH ×2 (08:18→19:59)
[2020-05-10] MEDS: FAMOTIDINE 20 MG TAB PO SCH (08:19)
[2020-05-10] MEDS: ASPIRIN 81 MG ECTAB PO SCH (08:19)
[2020-05-10] MEDS: ATORVASTATIN 40 MG TAB PO SCH (08:19)
[2020-05-10] MEDS: risperiDONE 1 MG TABLET PO SCH (08:19)
--- NOTE | 2020-05-10 08:38 | XCELERA ---
[id number]
[2020-05-10] MEDS: ACETAMINOPHEN 325 MG TAB PO PRN ×2 (09:08→13:43)
[2020-05-10 09:58] LABS: Partial Thromboplastin Ratio 1.5; Partial Thromboplastin Time 42.7 Seconds (21.0-31.0)
--- NOTE | 2020-05-10 10:49 | Pre Anesthesia Assessment ---
Date of Service May 10, 2020 Pre Sedation Assessment Vital Signs Temp Pulse Pulse Resp BP BP Pulse Ox 05/10/20 08:15 85 05/10/20 07:37 36.8 C 78 20 123/75 94 05/10/20 02:34 36.7 C 72 18 125/77 95 05/10/20 00:09 76 05/10/20 00:00 05/09/20 23:17 36.9 C 66 18 107/71 95 05/09/20 20:17 36.8 C 87 16 142/87 H 95 05/09/20 19:51 77 120/71 94 05/09/20 18:28 74 20 133/73 96 05/09/20 17:01 95 05/09/20 16:58 82 15 127/84 94 05/09/20 15:28 36.9 C 95 H 18 159/90 H 98 Pulse Ox 05/10/20 08:15 05/10/20 07:37 05/10/20 02:34 05/10/20 00:09 05/10/20 00:00 95 05/09/20 23:17 05/09/20 20:17 05/09/20 19:51 05/09/20 18:28 05/09/20 17:01 05/09/20 16:58 05/09/20 15:28 Cardiovascular + regular rate + murmur Respiratory normal respiratory effort, lungs clear to auscultation Pre-Sedation Airway Assessment Smoking Status: Former smoker Mallampati Class: I ASA: ASA3 NPO Status Date of Last Intake of Fluids: 05/09/20 Time of Last Intake of Fluids: 19:00 Date of Last Intake of Solid Food: 05/09/20 Time of Last Intake of Solid Foods: 19:00 Procedure Planning Contraindications for Sedation: none Current Medications Reviewed: Yes Notes The planned sedation has been discussed with the patient. Informed Consent was obtained. I have identified the patient, determined the appropriateness of sedation and have assessed the patient immediately prior to the procedure. All medicine(s) and interventions are by my order.
--- NOTE | 2020-05-10 10:49 | Cardiology Consultation ---
Date of Consultation May 10, 2020 Assessment & Plan (1) NSTEMI (non-ST elevated myocardial infarction): (2) HLD (hyperlipidemia): (3) Left ventricular outflow tract obstruction: (4) Mitral regurgitation: (5) Systolic anterior movement of mitral valve: ASSESSMENT/PLAN: 1. NSTEMI: Presented with chest discomfort and elevated troponins. Chest pain- free this morning when evaluated. Recommended cardiac catheterization. Risks and benefits were discussed with her in detail. She was agreeable to undergo the procedure. She was made aware that CT surgery is not available at this facility. Continue aspirin 81 mg daily. Continue high-intensity statin therapy. Initiate beta-logan. 2. 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 3. Mitral regurgitation: Appeared significant on transthoracic imaging. Hopefully with medical therapy, her WOJCIECH will be less significant which could also improve her MR. Will continue to monitor. 4. Dyslipidemia: High-intensity statin therapy. Most recent LDL 116. 5. Disposition: Cardiology will continue to follow. Highly complex medical issues. Thank you for allowing me to participate in the care of your patient. Please call for any other questions or concerns. Sincerely, Camilo Tyson M.D. History of Present Illness Reason for Consultation: NSTEMI Requesting Physician: Danial Attending Physician: Mario Alberto Soto History of Present Illness Mrs. Her is a very pleasant 64-year-old female with history significant for dyslipidemia, depression, and anxiety. She was admitted on 05/09/2020 with NSTEMI. On 05/08/2020, at approximately 5:00 p.m., she developed a stabbing sensation in her right shoulder when she was reaching above her head into a kitchen cabinet. This was followed by bilateral arm numbness and a feeling which she could only describe as funny" or weird. She then developed substernal chest tightness and mild shortness of breath. The symptoms occurred while sitting and persisted for approximately 3 hours before improving significantly. She went to bed and by the time she woke up in the morning, her symptoms had resolved. Then on 05/09/2020, she was shoveling snow for approximately 2 hours. After that, she ate lunch and then sat down to watch TV in the early afternoon. She once again developed chest tightness, bilateral arm numbness, shortness of breath, and the same funny feeling. She called her PCP and was instructed to go to the ER. By the time she arrived at the ER, her symptoms had completely resolved. Her initial troponin however was elevated at 2.5 and has since trended downward. She has been experiencing substernal tightness mostly at rest over the past 2 weeks intermittently but the past 2 days, episodes were more significant. She wears a smart watch and noted that her heart rate was more elevated during her symptoms up to 115 beats per minute. She otherwise denies palpitations, syncope, near-syncope, edema, or bleeding such as melena, hematochezia, or hematuria. She walks 1-3 miles most days of the week and has not experienced any exertional symptoms that she can recall. She denies fevers or chills. She states that she has had a murmur. Review of systems: As above. She also admits to migraine headaches, which was occurring while at the bedside. review of systems otherwise negative/unremarkable. Family history: Father had CKD. Mother with CHF. Social history: She quit smoking at the age of 31 after approximately 15 years of smoking up to 1 pack per day at the most. Rare alcohol. No drugs. Lives at home with her . No children. 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 She was unaccompanied. Allergies Allergy/AdvReac Type Severity Reaction Status Date / Time No Known Allergies Allergy Unverified 05/09/20 16:29 Home Medications Medication Instructions Recorded Confirmed Type atorvastatin 10 mg tablet 10 mg PO QAM #90 tab 01/13/19 05/09/20 History famotidine 20 mg tablet 20 mg PO QAM #180 tab 01/13/19 05/09/20 History risperidone 1 mg tablet 1 mg PO QAM tab 01/13/19 05/09/20 History sumatriptan succinate 100 mg tablet 100 mg PO UD PRN #9 tab 01/13/19 05/09/20 History sumatriptan succinate 6 mg/0.5 mL 6 mg SUBCUT .INJECT 0.5ML AT ONSE 02/10/19 05/09/20 History subcutaneous solution #2 ml bupropion HCl 200 mg PO BID 05/09/20 05/09/20 History Patient History Medical History (Updated 05/10/20 @ 14:12 by Anderson Tyson MD) Depression with anxiety HLD (hyperlipidemia) Migraine Surgical History (Updated 01/13/19 @ 09:31 by Aj Melendez) H/O tooth extraction H/O wrist surgery History of colposcopy Hx of tonsillectomy Family History (Updated 05/09/20 @ 18:37 by Debbie Barrow PA-C) Unknown Migraine Epilepsy Thyroid disorder Heart disease Angina pectoris Kidney disease Arthritis Breast cancer Father Migraine Dementia Mother CHF (congestive heart failure) Stroke Sister No problems noted. Social History (Updated 05/09/20 @ 18:37 by Debbie Barrow PA-C) Smoking Status: Former smoker Hx Alcohol Use: No Hx Substance Use: No Preferred Language: Hebrew Communication Ability: Effective Head Knitting Machine Fixer Required: No Beliefs That Will Affect Care: None Current Living Situation: Spouse Feels Safe at Home: Yes Safety Concerns: Feels Safe At This Time Assistive Devices: Glasses Physical Exam Physical Exam: Gen.: No acute distress. Alert and oriented. HEENT: Anicteric sclera. Neck: No JVD. No bruits. Normal carotid upstrokes bilaterally. Cardiac: PMI was nonpalpable. No ventricular heave. Regular rate and rhythm. Normal S1-S2. 2/6 holosystolic murmur. No rubs, or gallops. Pulmonary: Clear to auscultation bilaterally without wheezes, rales, or rhonchi. Abdomen: Soft, nontender, nondistended, with normoactive bowel sounds. No bruits noted. Extremities: 2+ radial pulses bilaterally. 2+ posterior tibialis pulses bilaterally. No edema or cyanosis. No palpable cords. Psychiatric: Affect appears appropriate. Results & Data ([facility]) Vital Signs (Past 12 Hours) Vital Signs Temp Pulse Pulse Resp BP Pulse Ox Pulse Ox 05/10/20 08:15 85 05/10/20 07:37 36.8 C 78 20 123/75 94 05/10/20 02:34 36.7 C 72 18 125/77 95 05/10/20 00:09 76 05/10/20 00:00 95 05/09/20 23:17 36.9 C 66 18 107/71 95 Laboratory Results Laboratory Results - last 24 hr 05/09/20 05/09/20 05/09/20 16:50 16:50 16:50 WBC 9.67 RBC 4.63 Hgb 13.9 Hct 41.8 MCV 90.3 MCH 30.0 MCHC 33.3 RDW Std Deviation 42.7 RDW Coeff of Della 12.9 Plt Count 340 MPV 10.2 Immature Gran % (Auto) 0.2 Neut % (Auto) 66.6 Lymph % (Auto) 23.7 Ocean % (Auto) 8.7 Eos % (Auto) 0.6 Baso % (Auto) 0.2 Neut # (Auto) 6.44 Lymph # (Auto) 2.29 Ocean # (Auto) 0.84 H Eos # (Auto) 0.06 Baso # (Auto) 0.02 Immature Gran # (Auto) 0.02 PT 12.2 H INR 1.2 H APTT 28.6 PTT Ratio 1.0 Sodium 139 Potassium 4.0 Chloride 106 Carbon Dioxide 27 Anion Gap 6.0 BUN 21 H Creatinine 1.14 Est Cr Clr Drug Dosing 55.7 Est GFR ( Amer) 59.3 Est GFR (Non-Af Amer) 51.1 BUN/Creatinine Ratio 18.4 Glucose 117 H Estimat Average Glucose Hemoglobin A1c Calcium 9.0 Magnesium Total Bilirubin AST ALT Alkaline Phosphatase Troponin I 2.500 H* Total Protein Albumin Globulin Albumin/Globulin Ratio Triglycerides Cholesterol LDL Cholesterol, Calc VLDL Cholesterol, Calc HDL Cholesterol Cholesterol/HDL Ratio Lipase 170 Hepatitis C Ab Screen SARS-CoV-2 Ag (Rapid) 05/09/20 05/09/20 05/10/20 18:45 23:27 00:43 WBC RBC Hgb Hct MCV MCH MCHC RDW Std Deviation RDW Coeff of Della Plt Count MPV Immature Gran % (Auto) Neut % (Auto) Lymph % (Auto) Ocean % (Auto) Eos % (Auto) Baso % (Auto) Neut # (Auto) Lymph # (Auto) Ocean # (Auto) Eos # (Auto) Baso # (Auto) Immature Gran # (Auto) PT INR APTT 39.9 H PTT Ratio 1.4 Sodium Potassium Chloride Carbon Dioxide Anion Gap BUN Creatinine Est Cr Clr Drug Dosing Est GFR ( Amer) Est GFR (Non-Af Amer) BUN/Creatinine Ratio Glucose Estimat Average Glucose Hemoglobin A1c Calcium Magnesium Total Bilirubin AST ALT Alkaline Phosphatase Troponin I 2.170 H* Total Protein Albumin Globulin Albumin/Globulin Ratio Triglycerides Cholesterol LDL Cholesterol, Calc VLDL Cholesterol, Calc HDL Cholesterol Cholesterol/HDL Ratio Lipase Hepatitis C Ab Screen SARS-CoV-2 Ag (Rapid) Negative 05/10/20 05/10/20 05/10/20 05:53 05:53 05:53 WBC 6.56 RBC 4.69 Hgb 13.8 Hct 42.6 MCV 90.8 MCH 29.4 MCHC 32.4 RDW Std Deviation 44.4 RDW Coeff of Della 13.3 Plt Count 337 MPV 10.8 H Immature Gran % (Auto) Neut % (Auto) Lymph % (Auto) Ocean % (Auto) Eos % (Auto) Baso % (Auto) Neut # (Auto) Lymph # (Auto) Ocean # (Auto) Eos # (Auto) Baso # (Auto) Immature Gran # (Auto) PT INR APTT PTT Ratio Sodium 138 Potassium 3.7 Chloride 106 Carbon Dioxide 25 Anion Gap 7.0 BUN 15 Creatinine 0.99 Est Cr Clr Drug Dosing 63.6 Est GFR ( Amer) 70.3 Est GFR (Non-Af Amer) 60.6 BUN/Creatinine Ratio 15.5 Glucose 99 Estimat Average Glucose Hemoglobin A1c Calcium 8.7 Magnesium 2.2 Total Bilirubin 0.3 AST 46 H ALT 25 Alkaline Phosphatase 61 Troponin I 1.050 H* Total Protein 7.0 Albumin 3.7 Globulin 3.3 Albumin/Globulin Ratio 1.1 Triglycerides 86 Cholesterol 206 H LDL Cholesterol, Calc 116 VLDL Cholesterol, Calc 17 HDL Cholesterol 73 Cholesterol/HDL Ratio 3 Lipase Hepatitis C Ab Screen Neg SARS-CoV-2 Ag (Rapid) 05/10/20 05/10/20 05:53 09:35 WBC RBC Hgb Hct MCV MCH MCHC RDW Std Deviation RDW Coeff of Della Plt Count MPV Immature Gran % (Auto) Neut % (Auto) Lymph % (Auto) Ocean % (Auto) Eos % (Auto) Baso % (Auto) Neut # (Auto) Lymph # (Auto) Ocean # (Auto) Eos # (Auto) Baso # (Auto) Immature Gran # (Auto) PT INR APTT 42.7 H PTT Ratio 1.5 Sodium Potassium Chloride Carbon Dioxide Anion Gap BUN Creatinine Est Cr Clr Drug Dosing Est GFR ( Amer) Est GFR (Non-Af Amer) BUN/Creatinine Ratio Glucose Estimat Average Glucose 108 Hemoglobin A1c 5.4 Calcium Magnesium Total Bilirubin AST ALT Alkaline Phosphatase Troponin I Total Protein Albumin Globulin Albumin/Globulin Ratio Triglycerides Cholesterol LDL Cholesterol, Calc VLDL Cholesterol, Calc HDL Cholesterol Cholesterol/HDL Ratio Lipase Hepatitis C Ab Screen SARS-CoV-2 Ag (Rapid) Diagnostic Findings Telemetry personally reviewed: Sinus rhythm. Echo personally reviewed. ECGs personally reviewed. Echo 05/10/2020:, wall motion, systolic function. EF 60-65%. Mild LVH. Mild left atrial dilation. Wojciech with LVOT obstruction (peak velocity 3.2; peak gradient 40; severe eccentric MR. ECG 05/09/20 at 1850: Sinus rhythm 70 beats per minute. ECG 05/09/2020 at 3:34 p.m.: Sinus rhythm at 90 beats per minute. Nonspecific ST abnormality. Medications Administered Current Inpatient Medications Acetaminophen (Acetaminophen 325 Mg Tab) 650 mg PO Q4H PRN PRN Reason: Moderate Pain Stop: 06/08/20 20:15 Last Admin: 05/10/20 09:08 Dose: 650 mg Documented by: Aspirin (Aspirin 81 Mg Ectab) 81 mg PO [facility] Stop: 06/09/20 08:59 Last Admin: 05/10/20 08:19 Dose: 81 mg Documented by: Atorvastatin Calcium (Atorvastatin 40 Mg Tab) 80 mg PO [facility] Stop: 06/09/20 08:59 Last Admin: 05/10/20 08:19 Dose: 80 mg Documented by: Bupropion HCl (Bupropion Sr 100 Mg Tabcr) 200 mg PO BID [facility] Stop: 06/08/20 20:59 Last Admin: 05/10/20 08:18 Dose: 200 mg Documented by: Famotidine (Famotidine 20 Mg Tab) [facility] [place] Stop: 06/09/20 08:59 Last Admin: 05/10/20 08:19 Dose: 20 mg Documented by: Heparin Sodium/Dextrose (Heparin Sodium/Dextrose) 25,000 units in 500 mls @ 17 mls/hr IV .Q24H [facility]; Protocol Stop: 06/08/20 17:44 Last Titration: 05/10/20 10:06 Dose: 950 units/hr, 19 mls/hr Documented by: Ondansetron HCl (Ondansetron Inj 2 Mg/Ml 2 Ml Vial) 4 mg IV Q4H PRN PRN Reason: Nausea And Vomiting Stop: 06/08/20 20:15 Risperidone (Risperidone 1 Mg Tablet) [facility] [place] Stop: 06/09/20 08:59 Last Admin: 05/10/20 08:19 Dose: 1 mg Documented by: PG Care Time/CCT Total # of Minutes Spent Total Time Spent with Patient: Total time spent is greater than 50% in coordination of care (as documented) at patient's floor/unit and/or counseling patient: Coding Level of Care Code 90701 Inpt Consult Level 5 Diagnoses NSTEMI (non-ST elevated myocardial infarction) I21.4 HLD (hyperlipidemia) E78.5 Left ventricular outflow tract obstruction Q24.8 Mitral regurgitation I34.0 Systolic anterior movement of mitral valve I34.8
[2020-05-10] MEDS ORDERED: fentaNYL citrate 100 MCG/2 ML VIAL ONE (14:19)
[2020-05-10] MEDS ORDERED: MIDAZOLAM HCL 1 MG/ML 2ML VIAL ONE (14:19)
[2020-05-10] MEDS ORDERED: niCARdipine HCL INJ 2.5 MG/ML 10 ML AMP ONE (14:19)
[2020-05-10] MEDS ORDERED: HEPARIN (PORCINE) 1000 UNIT/ML 10 ML (CATH LAB USE ONLY) ONE (14:19)
[2020-05-10] MEDS ORDERED: NITROGLYCERIN/D5W 100MCG/ML 20ML SYR ONE (14:20)
[2020-05-10 15:06] LABS: iSTAT Arterial Blood Gas HCO3 24 meg/L (19-24); iSTAT Arterial Blood Gas pCO2 43 mmHg (35-46); iSTAT Arterial Blood Gas pH 7.35 (7.35-7.45); iSTAT Arterial Blood Gas pO2 37 mmHg (80-95); iSTAT Carbon Dioxide 25 mmol/L (24-31)
[2020-05-10 15:26] LABS: iSTAT Arterial Blood Gas HCO3 23 meg/L (19-24); iSTAT Arterial Blood Gas pCO2 43 mmHg (35-46); iSTAT Arterial Blood Gas pH 7.34 (7.35-7.45); iSTAT Arterial Blood Gas pO2 80 mmHg (80-95); iSTAT Carbon Dioxide 25 mmol/L (24-31)
--- NOTE | 2020-05-10 15:36 | Cardiac Catheterization ---
[facility] Data: Transmission Rebuilder Cardiac Status Clinical evaluation leading to the procedure CAD Presenation: Non STEMI Anginal Classification: CCS IV Heart Failure: No Cardiogenic Shock within 24 Hours: No Cardiac Arrest within 24 Hours: No Imaging Studies Past 6 Months: Yes Stress Studies Past 6 Months: No Standard Exercise Test: No Stress Echocardiogram: No Stress Testing w/SPECT MPI: No Cardiac CTA: No Coronary Anatomy Dominant: Right Left Ventricular Angiography EF (%): 65-70 Wall Motion: Anterior (Normal), Apical (Normal) and Inferior (Normal) Mitral Regurgitation: 1+ Diagnostic Physicians Name: Anderson Tyson MD Status: Elective Closure Device Percutaneous Entry Location: Radial Closure Device: Radial Band Recommendations: Management Recommendatons (as above) Cardiac Cath Procedure Full Procedure Date May 10, 2020 Pre-Procedure Diagnosis Pre-Procedure Diagnosis: Non STEMI and Valvular Disease AUC Score AUC Score: 8 Post-Procedure Diagnosis Post-Procedure Diagnosis: Normal Coronary Arteries, Normal LV Systolic Function and Normal Intracardiac Pressures Procedure(s) Performed Procedure(s) Performed: Coronary Angiography, Left Heart Cath, Right Heart Cath and LV Angiography Telephone Operators Supervisor Anderson Tyson MD Calender Let Off Operator(s) Gildardo Estimated Blood Loss Estimated Blood Loss: < 30 ml Medication(s) Medication(s): Fentanyl, Heparin, Lidocaine 1%, Nicardipine and Versed Summary of Findings Procedures: 1. Coronary angiography 2. Left heart catheterization 3. Right heart catheterization 4. Left ventriculography 5. Moderate sedation Coronary angiography: 1. Left main coronary artery: No significant CAD. 2. Left anterior descending: LAD is a large-caliber vessel that extends to the apex. Mid LAD ectatic but without significant CAD. Large D1. Mildly sluggish flow through the LAD without obstructive CAD. 3. Circumflex: The circumflex is a large-caliber vessel. Medium OM1, large OM 2, PL [address] 2 branches. No significant CAD within the circumflex system. 4. Right coronary artery: The RCA is large and dominant. The RCA gives rise to a large PDA and a small PL branch. No significant CAD within the RCA system. Left ventriculography (PATEL): 1. Normal wall motion. 2. Normal LV systolic function. EF 65-70%. 3. 1+ MR. There was 2+ MR with a PVC. Left heart catheterization: 1. There was no intracavitary gradient noted. 2. No aortic stenosis. 3. LVEDP 7 mmHg (following 250 ml NS bolus). Right heart catheterization: 1. Pulmonary capillary wedge pressure: V wave 8 with a mean of 3 mmHg. 2. PA pressure 19/4 with a mean of 9 mmHg. 3. RV pressure 17/0 with RVEDP of 1 mmHg. 4. RA pressure: A wave 4; V wave 2; mean 1 mmHg. 5. Cardiac output via thermodilution was 4.22 L/min with a cardiac index of 2.18 L/min/m. 6. PVR 1.42 Wood units. Moderate sedation: 1. Sedation start time: 2:28 PM 2. Sedation end time: 3:08 PM Impression: 1. No significant CAD. 2. Low left and right-sided filling pressures. LVEDP was low normal after fluid bolus. 3. No pulmonary hypertension. 4. No aortic stenosis. 5. Mitral regurgitation 1+. 6. Normal left ventricular systolic function and wall motion. Plan: 1. Optimize medical therapy for systolic anterior motion of the mitral leaflet. 2. Consider repeating echocardiogram in the near future. Hemodynamics Rest Ao:: 90/61/71 Final Ao: 114/72/92 LV: 97/3/7 Recommendations Recommendations: Management Recommendatons (as above) Specimens Specimens: None Radiation Exposure (mGy) 761 mGy. Fluoro time 5 min. Contrast (mls) 80 ml Procedural Complication(s) None Disposition PCU I attest to the content of the Intraoperative Record and any orders documented therein. Any exceptions are noted below. [facility] Card Cath Procedure Codes Cardiac Catheterization Procedure 1: Cardiovascular Cath Procedures: 29116 Coronaries & LHC (+/-LV) & RHC Moderate Sedation Procedure 1: Sedation/Anesthesia: 39274 Mod Sedation by the same physician;Init15 Min Child Age 5 & Up Procedure 2: Sedation/Anesthesia: 46266 Mod Sedation by the same physician; Ea [id number] Minutes Procedure 3: Sedation/Anesthesia: 04951 Mod Sedation by the same physician; Ea [id number] Minutes PG Care Time/CCT Total # of Minutes Spent Total Time Spent with Patient: Total time spent is greater than 50% in coordination of care (as documented) at patient's floor/unit and/or counseling patient:
--- NOTE | 2020-05-10 15:36 | Post Anesthesia Assessment ---
Date of Service May 10, 2020 Post Sedation Assessment Vital Signs Temp Pulse Pulse Resp BP BP Pulse Ox 05/10/20 15:20 80 16 113/68 94 05/10/20 14:00 97 H 16 138/80 97 05/10/20 12:52 36.7 C 86 20 101/68 95 05/10/20 12:05 05/10/20 08:15 85 05/10/20 07:37 36.8 C 78 20 123/75 94 05/10/20 02:34 36.7 C 72 18 125/77 95 05/10/20 00:09 76 05/10/20 00:00 05/09/20 23:17 36.9 C 66 18 107/71 95 05/09/20 20:17 36.8 C 87 16 142/87 H 95 05/09/20 19:51 77 120/71 94 05/09/20 18:28 74 20 133/73 96 05/09/20 17:01 95 05/09/20 16:58 82 15 127/84 94 Pulse Ox Pulse Ox 05/10/20 15:20 05/10/20 14:00 05/10/20 12:52 05/10/20 12:05 96 05/10/20 08:15 05/10/20 07:37 05/10/20 02:34 05/10/20 00:09 05/10/20 00:00 95 05/09/20 23:17 05/09/20 20:17 05/09/20 19:51 05/09/20 18:28 05/09/20 17:01 05/09/20 16:58 Recovery Score Activity: Moves 4 extremities Respiration: Deep Breath/Cough Circulation: +/-20% PreAnes Value Consciousness: Fully Awake Oxygen Saturation: > 92% On Room Air Post Anesthesia Score: 10 Discharge Sedation Level of Care: Fast Track Phase II Post Sedation Plan On clinical assessment, the patient appears to have tolerated the sedation without complications. Patient is recovering as anticipated. Patient will continue to be monitored by nursing and may be discharged when sedation discharge criteria are met per below protocol. Upon Completions of procedure up to 15 minutes continue every 5 minute vital signs and the P.A.R. score; then discharge to a Phase I or Fast Track to Phase II per the following guidelines: * Discharge Patient to appropriate Phase II area if PAR is 8 or greater or return to pre- procedure baseline. The post - procedure orders will be as directed. * If PAR score is less than 8 or not return to pre-procedure baseline then patient will follow Phase I monitoring till PAR is reached for Phase II. The Phase I may be done in procedure room or may call to secure a Phase I area. * If naloxone or flumazenil are used for reversal, hold in Phase I for continued monitoring from when last reversal dose was given for a minimum of 60 minutes or longer pending the nurse and/or physician discretion of patient condition before discharge to Phase II. Please call the Sedation Physician to re-evaluate and complete post-note for discharge to Phase II area. Do NOT discharge from procedure sedation or Phase 1 until post- sedation evaluation note is complete by procedure /sedation MD Sedation Discharge Instructions to be given to the patient at discharge to home.
[2020-05-10] MEDS ORDERED: SODIUM CHLORIDE 0.9% 1000ML 1,000 ML IV SCH (15:45)
[2020-05-10] MEDS ORDERED: KETOROLAC TROMETHAMINE 15 MG/ML VIAL IV ONE (17:55)
[2020-05-10] MEDS ORDERED: SUMAtriptan succinate 50 MG TAB PO ONE (17:59)
[2020-05-10] MEDS ORDERED: CLOPIDOGREL BISULFATE 75 MG TAB PO ONE (18:36)
[2020-05-10] MEDS: METOPROLOL TARTRATE 25 MG TAB PO SCH (19:59)
--- NOTE | 2020-05-10 21:55 | Hospitalist Progress Note ---
Date of Service May 10, 2020 Assessment & Plan (1) NSTEMI (non-ST elevated myocardial infarction): - Admit to tele - Started on heparin drip and given full dose aspirin in the ER -Patient had cardiac cath which was negative. -Cardiac markers trending down. -will continue with heparin overnight and dc in AM. - Continue high intensity statin therapy - PT/OT consulted (2) Hypercholesterolemia: - Resume atorvastatin 10 mg daily, increase statin to high intensity statin, atorvastatin 80 mg - LDL is 116. (3) Chronic kidney disease, stage 3: - Creatinine 1.14, BUN 21 on admission, appears to be around baseline. - creatinine at goal. (4) Migraine: - History of such, uses Imitrex as an outpatient (5) Depression with anxiety: - Continue Wellbutrin 200 mg twice daily, risperidone 1 mg QAM DVT PPx: - teds, heparin drip as above CODE: Full code (6) Headache: will give a trial of sumatriptan. will have patient on heart monitor in case symptoms of chest pain return. patient will receive 50 mg of dose. Risks explained to patient of getting sumatriptan and she showed understanding.. Patient did not want NSAID for risk of bleeding Admission and Anticipated Discharge Date Admission Date: May 09, 2020 Subjective 64 yo female reports feeling well. Her main complaint is a headache. She reports having migraine headaches. She normally takes sumatriptan at home. Review of Systems Review of Systems: All systems reviewed & are unremarkable except as noted in HPI & below Physical Exam Physical Exam: General: awake, alert, no apparent distress Head: Normocephalic, atraumatic ENT: PERRL, EOMI, no pharyngeal exudate, mucous membranes moist Chest: Clear to auscultation, on room air, no adventitious breath sounds Cardiac: Regular rate and rhythm, no murmur, no JVD, normal peripheral pulses, good capillary refill Abdominal: NABS x 4 quadrants, soft, nondistended, nontender to palpation, no rebound or guarding Extremities: Normal inspection, no peripheral edema or erythema, calfs nontender to palpation Psych: Normal mood and affect Neuro: AAO x 3, strength intact bilaterally and rated 5/5, no motor deficits, speech is clear, no peripheral sensory deficits Results & Data Results & Data ([facility]) Vital Signs (Past 12 Hours) Vital Signs Temp Pulse Pulse Resp BP Pulse Ox Pulse Ox 05/10/20 20:10 36.4 C L 82 20 110/68 97 05/10/20 17:30 81 18 129/87 95 05/10/20 16:52 85 18 125/74 94 05/10/20 16:32 75 18 111/76 96 05/10/20 16:06 85 18 117/77 97 05/10/20 16:01 71 05/10/20 15:58 36.6 C 86 18 110/73 97 05/10/20 15:35 70 16 139/82 95 05/10/20 15:20 80 16 113/68 94 05/10/20 14:00 97 H 16 138/80 97 05/10/20 12:52 36.7 C 86 20 101/68 95 05/10/20 12:05 96 PG Care Time/CCT Total # of Minutes Spent Total Time Spent with Patient: Total time spent is greater than 50% in coordination of care (as documented) at patient's floor/unit and/or counseling patient: Coding Level of Care Code 33692 Subseq Hosp Care Lvl 3 Diagnoses NSTEMI (non-ST elevated myocardial infarction) I21.4 Hypercholesterolemia E78.00 Chronic kidney disease, stage 3 N18.3 Migraine G43.909 Depression with anxiety F41.8 Headache R51.9 Time Spent (min) 35
[2020-05-10 22:38] LABS: Partial Thromboplastin Ratio 1.8
[2020-05-10 22:46] LABS: Partial Thromboplastin Time 51.6 Seconds (21.0-31.0)
--- NOTE | 2020-05-10 23:06 | Electrocardiogram Report ---
Test Reason : Blood Pressure : / mmHG Vent. Rate : 090 BPM Atrial Rate : 090 BPM P-R Int : 146 ms QRS Dur : 082 ms QT Int : 356 ms P-R-T Axes : 058 066 054 degrees QTc Int : 435 ms Normal sinus rhythm Nonspecific ST abnormality Abnormal ECG When compared with ECG of 11-JUL-2008 15:07, No significant change was found Confirmed by Anderson Tyson ([id number]) on 05/10/2020 11:06:13 PM Referred By: REFERRED SELF Confirmed By:Anderson Tyson
--- NOTE | 2020-05-10 23:13 | Electrocardiogram Report ---
Test Reason : Blood Pressure : / mmHG Vent. Rate : 070 BPM Atrial Rate : 070 BPM P-R Int : 150 ms QRS Dur : 078 ms QT Int : 390 ms P-R-T Axes : 037 058 040 degrees QTc Int : 421 ms Normal sinus rhythm Normal ECG When compared with ECG of 09-MAY-2020 15:34, No significant change was found Confirmed by Anderson Tyson ([id number]) on 05/10/2020 11:13:04 PM Referred By: REFERRED SELF Confirmed By:Anderson Tyson
[2020-05-10] MEDS: HEPARIN SODIUM/DEXTROSE 25,000 UNITS/500 ML BAG IV SCH (23:30)
[2020-05-11 08:08] LABS: Mean Corpuscular Hemoglobin 29.7 pg (25-34); Mean Corpuscular Hgb Conc 32.5 g/dL (32-36); Mean Corpuscular Volume 91.3 fL (80-100); Mean Platelet Volume 10.4 fL (7.4-10.4); Platelet Count 291 K/uL (130-400); RDW Coefficient of Variation 13.2 % (11.5-14.5); RDW Standard Deviation 44.6 fL (36.4-46.3); Red Blood Count 4.38 M/uL (4.2-5.4); White Blood Count 4.92 K/uL (4.8-10.8)
[2020-05-11] MEDS: METOPROLOL TARTRATE 25 MG TAB PO SCH (08:21)
[2020-05-11] MEDS: ASPIRIN 81 MG ECTAB PO SCH (08:21)
[2020-05-11] MEDS: risperiDONE 1 MG TABLET PO SCH (08:21)
[2020-05-11] MEDS: buPROPion SR 100 MG TABCR PO SCH (08:21)
[2020-05-11] MEDS: FAMOTIDINE 20 MG TAB PO SCH (08:22)
[2020-05-11] MEDS: ATORVASTATIN 40 MG TAB PO SCH (08:22)
[2020-05-11] MEDS: ACETAMINOPHEN 325 MG TAB PO PRN (08:28)
[2020-05-11 08:45] LABS: Albumin Globulin Ratio 1.1 (0.9-2); Albumin Level 3.6 gm/dl (3.4-5.0); BUN Creatinine Ratio 7.9 (10-20); Bilirubin,Total 0.3 mg/dl (0.2-1); Calcium 9.1 mg/dl (8.5-10.1); Creatinine Clr Calc Pharmacy 76.7 ml/min; Est GFR (African American) 88.3; Est GFR (Non-African American) 76.2; Globulin 3.2 gm/dl (2.5-4.0); Potassium 3.9 mmol/L (3.5-5.1); Total Protein 6.8 gm/dl (6.4-8.2)
[2020-05-11] MEDS ORDERED: CLOPIDOGREL BISULFATE 75 MG TAB PO SCH (09:00)
--- NOTE | 2020-05-11 12:22 | Discharge Summary ---
Date of Service May 11, 2020 Admission HPI Per Admitting Provider This is a 64 yo F with PMHx of CKD stage III, HLD, migraine headaches, depression and anxiety who presents to the ER with chest pain. She developed the pain last evening while she was putting some things away in her house, developed noticeable pain in the right arm, which then moved up into her neck and then proceeded to turn into tingling of both arms around 5pm and lasted until 8pm. After than point pain seemed to lessen as she had been resting and went to bed. Pt was wearing a fit bit last night and noticed her HR was elevated. She took two baby aspirin last night in case this was something with her heart, also with inclement snowy weather with 18+ inches of snow last night, and the COVID pandemic, was fearful that that she could not get here. The patient was awake this morning snow shoveling where she had recurrence of the R shoulder pain around 12:30-1:00pm, characterized as a sharp, constant pain, and then drove herself to the ER. Pt feels like she cannot take a deep breath but denies shor tness of breath. Patient is chest pain-free on arrival to the ER. Denies other acute complaints. Troponin elevated at 2.5 on admission, patient was started on heparin drip and given a full dose aspirin in the ER. Principal Diagnosis NSTEMI Discharge Exam General: awake, alert, no apparent distress Head: Normocephalic, atraumatic ENT: PERRL, EOMI, no pharyngeal exudate, mucous membranes moist Chest: Clear to auscultation, on room air, no adventitious breath sounds Cardiac: Regular rate and rhythm, no murmur, no JVD, normal peripheral pulses, good capillary refill Abdominal: NABS x 4 quadrants, soft, nondistended, nontender to palpation, no rebound or guarding Extremities: Normal inspection, no peripheral edema or erythema, calfs nontender to palpation Psych: Normal mood and affect Neuro: AAO x 3, strength intact bilaterally and rated 5/5, no motor deficits, speech is clear, no peripheral sensory deficits Discharge Data Allergies Allergy/AdvReac Type Severity Reaction Status Date / Time No Known Allergies Allergy Unverified 05/09/20 16:29 Consultations 05/09/20 17:46 ED Decision to Admit Stat 05/09/20 20:16 Consult Cardiology Routine Consult Case Management - Discharge Planning Routine Procedures Performed Operation Date: 05/10/20 14:00 Actual Procedures p Cath, Right and Left Heart - Anderson Tyson MD s Cineradiography w/Routine Exam - Anderson Tyson MD Ordered Studies 05/10/20 10:54 CL Cath Imgs for PACS use only Stat Hospital Course (1) NSTEMI (non-ST elevated myocardial infarction): - Admit to tele - Started on heparin drip and given full dose aspirin in the ER, continue heparin drip until day of discharge. -Patient had cardiac cath which was negative. -Cardiac markers trending down. - Continue high intensity statin therapy -Possible vasospasm will followup with cardio in 1-3 weeks (2) Hypercholesterolemia: - Resume atorvastatin 10 mg daily, increase statin to high intensity statin, atorvastatin 80 mg - LDL is 116. (3) Chronic kidney disease, stage 3: - Creatinine 1.14, BUN 21 on admission, appears to be around baseline. - creatinine at goal. (4) Migraine: - History of such, uses Imitrex as an outpatient (5) Depression with anxiety: - Continue Wellbutrin 200 mg twice daily, risperidone 1 mg QAM (6) Headache: Patient was given trial of sumatriptan, with no side effects. She refused NSAID. Total Time Total Time Spent Total Time Spent (In Minutes): 32 Discharge Plan Discharge Items Patient Disposition: Home - Self-Care Reason For Visit: NSTEMI Discharge Diagnosis: NSTEMI Activity: Resume your previous activity Non-emergency contact: Primary Care Provider Call non-emergency contact if: you have any medication questions Follow-up/Referrals: Anderson Tyson MD [Physician] - 05/30/20 11:30 am (with ESTELA little) Matthew Rogers MD [Primary Care Provider] - 05/15/20 1:30 pm (DR. SABA - 1:30) Diet: Heart Healthy Addtl Attending Provider Instructions: ACTIVITY RECOMMENDATIONS: Excess manipulation of the wrist should be avoided for the next 24-48 hours. * No lifting over 2 pounds (approximately a 1/2 gallon of milk) with the utilized arm for 24 hours. * No strenuous activity such as bowling or tennis for 3 days. * Keep the site of the procedure covered with a bandage for 24 hours. *You may shower the day after the procedure. Do not take a tub bath or submerge the puncture site in water for the next 3 days. *Do not operate any motorized equipment for 3 days. SPECIAL CARE INSTRUCTIONS: The site may be slightly bruised and sore following your procedure. Should any of the following occur, contact the Dr. who performed your procedure. 1. Redness/inflammation, swelling, chills, or fever, or colored drainage at procedure site within 3-7 days after your procedure. 2. Coldness, discoloration, ongoing numbness, severe pain, or swelling. Expect mild tingling of hand and tenderness at the puncture site for up to three days. If this persists beyond three days, or other symptoms develop, notify the Dr. who performed your procedure. BLEEDING: If the procedure site on your wrist begins to bleed, do not panic 1. Place 1 or 2 fingers firmly just slightly above the insertion site to stop the bleeding. You may be able to feel your pulse as you hold pressure. 2. Lift your finger after 5 minutes to see if the bleeding has stopped. 3. Once the bleeding has stopped, gently wipe the wrist area clean with a bandage. * If the bleeding from your wrist does not stop after 10 minutes, or if there is a large amount of bleeding or spurting, call 911 (do not drive yourself to the hospital). SKIN IRRITATION: * You may experience some redness and/or swelling in the area where radiation was administered. If any skin irritation occurs, please contact your family physician. FOLLOW UP VISIT: 1. Follow up with Dr. Tyson in 1-[address] [place] [address]. ([phone]). Pending Studies at Discharge: No Stand-Alone Forms: My [facility] Friendly Score, Smoking Cessation Medications and DC Order Prescriptions: New atorvastatin 40 mg Tablet 80 mg PO QAM Qty: 60 RF: 0 clopidogrel 75 mg Tablet 75 mg PO QAM Qty: 30 RF: 0 aspirin 81 mg Tablet,Delayed Release (Dr/Ec) 81 mg PO QAM Qty: 30 RF: 0 metoprolol succinate 50 mg tablet extended release 24 hr 50 mg PO PM Qty: 30 RF: 0 Continued sumatriptan succinate 6 mg/0.5 mL solution 6 mg subcut .INJECT 0.5ML AT ONSE Qty: 2 RF: 0 risperidone 1 mg tablet 1 mg PO QAM RF: 0 famotidine 20 mg tablet 20 mg PO QAM Qty: 180 RF: 0 sumatriptan succinate 100 mg tablet 100 mg PO UD PRN (Reason: Migraine Headache) Qty: 9 RF: 0 bupropion HCl 200 mg tablet sustained-release 12 hr 200 mg PO BID RF: 0 Discontinued atorvastatin 10 mg tablet 10 mg PO QAM Qty: 90 RF: 0 Discharge Orders: Discharge Order (Routine); Ordered 05/11/20 Ordered By: Mario Alberto Soto Admission Data Admit Date/Time: 05/09/20 18:13 Attending Provider: Mario Alberto Soto Admit Provider: Amish Ruiz Primary Care Provider: Matthew Rogers Other Providers: Anderson Tyson Other Interventions: Discharge Summary Assessment (RN) Last Done: 05/11/20 12:26 Coding Level of Care Code D/C Day Management >30 mins Diagnoses NSTEMI (non-ST elevated myocardial infarction) I21.4 Hypercholesterolemia E78.00 Chronic kidney disease, stage 3 N18.3 Migraine G43.909 Depression with anxiety F41.8 Headache R51.9 Time Spent (min) 32
== END 2020-05-11 13:36 | disposition home or self-care (01) | DRG 282 ==
LOC: ED 15:23 → 2S 18:13 → SUATTDRO 18:13 → 2S 19:32
DX: I34.0 Nonrheumatic mitral (valve) insufficiency; I51.89 Other ill-defined heart diseases; N18.30 Chronic kidney disease, stage 3 unspecified; G43.909 Migraine, unspecified, not intractable, without status migrainosus; F41.8 Other specified anxiety disorders; Z82.49 Family history of ischemic heart disease and other diseases of the circulatory system; I34.8 Other nonrheumatic mitral valve disorders; I21.4 Non-ST elevation (NSTEMI) myocardial infarction; Z79.899 Other long term (current) drug therapy; Z87.891 Personal history of nicotine dependence; E78.00 Pure hypercholesterolemia, unspecified

== ENCOUNTER 2020-08-17 22:39 | Observation (INO) ==
[2020-08-17] MEDS ORDERED: NITROGLYCERIN 2% OINTMENT 30GM TUBE EXT STA (23:28)
[2020-08-17] MEDS ORDERED: ONDANSETRON INJ 2 MG/ML 2 ML VIAL IV STA (23:28)
[2020-08-17] MEDS ORDERED: NITROGLYCERIN SL 0.4 MG/TAB TAB SL PRN (23:28)
[2020-08-17 23:35] LABS: Basophils # (auto) 0.02 K/uL (0-0.2); Basophils % (auto) 0.3 %; Eosinophils # (auto) 0.15 K/uL (0-0.5); Eosinophils % (auto) 2.1 %; Hematocrit (blood only) 39.6 % (37-47); Hemoglobin 13.2 g/dL (12.0-16.0); Immature Granulocytes # (auto) 0.01 K/uL (0.00-0.02); Immature Granulocytes % (auto) 0.1 %; Lymphocytes # (auto) 2.51 K/uL (1.2-3.4); Lymphocytes % (auto) 35.2 %; Mean Corpuscular Hemoglobin 29.6 pg (25-34); Mean Corpuscular Hgb Conc 33.3 g/dL (32-36); Mean Corpuscular Volume 88.8 fL (80-100); Mean Platelet Volume 10.3 fL (7.4-10.4); Monocytes % (auto) 8.4 %; Neutrophils # (auto) 3.84 K/uL (1.4-6.5); Neutrophils % (auto) 53.9 %; Platelet Count 280 K/uL (130-400); RDW Standard Deviation 42.1 fL (36.4-46.3); Red Blood Count 4.46 M/uL (4.2-5.4); White Blood Count 7.13 K/uL (4.8-10.8)
[2020-08-17] MEDS ORDERED: ASPIRIN CHEW 324 MG PO STA (23:36)
[2020-08-17 23:47] LABS: INR 1.1 (0.9-1.1); Partial Thromboplastin Time 26.1 Seconds (21.0-31.0); Prothrombin Time 11.4 Seconds (9.0-12.0)
[2020-08-17 23:54] LABS: Alanine Aminotransferase 23 U/L (12-78); Albumin Level 3.9 gm/dl (3.4-5.0); Aspartate Aminotransferase 16 U/L (15-37); BUN Creatinine Ratio 13.9 (10-20); Blood Urea Nitrogen 15 mg/dl (7-18); Carbon Dioxide 26 mmol/L (21-32); Chloride 107 mmol/L (98-107); Creatinine Clr Calc Pharmacy 56.5 ml/min; Est GFR (African American) 60.8; Est GFR (Non-African American) 52.4; Glucose 91 mg/dl (70-99); Lipase 128 U/L (73-393); Potassium 3.8 mmol/L (3.5-5.1); Sodium 138 mmol/L (136-145)
[2020-08-17 23:59] LABS: Albumin Globulin Ratio 1.2 (0.9-2); Alkaline Phosphatase 68 U/L (45-117); Bilirubin,Total 0.3 mg/dl (0.2-1); Globulin 3.2 gm/dl (2.5-4.0); Total Protein 7.1 gm/dl (6.4-8.2); Troponin I < 0.015 ng/ml (0-0.045)
--- NOTE | 2020-08-18 00:24 | Emergency Department Note ---
Impression & Plan Atypical chest pain, History of non-ST elevation myocardial infarction (NSTEMI) ED Provider Note NAME: LARISSA DUNCAN AGE: 65 SEX: F : 1955 ARRIVES VIA: Walk-In INFORMANT: Patient, ED PROVIDER(S): Ion Gillette MD Chief Complaint: Chest pain HPI: Patient states that she was having some intermittent left-sided chest pain that was occasionally stabbing but it was worse with exertion or activity. The patient states that she also has some discomfort in the right arm as well as the left side of the neck. Patient states this is very similar to when she had an NSTEMI back in April. I did review the notes which show that the patient could have had vasospasm but at the time had a troponin to 2.5 - cardiac cath but echo did note a left ventricular outflow tract obstruction secondary to the mitral valve. Patient has been compliant with medications denies infectious symptoms. Patient is not had any cough fevers or chills. Patient has not had any nausea vomiting or diaphoresis. Patient denies any recent surgeries, procedures, or hospitalizations with exception of back in April. The patient did take a baby aspirin earlier today. She denies history of DVT or PE. The patient denies any lower extremity swelling. ROS: See HPI for pertinent positives and negatives. A total of 10 systems were reviewed and otherwise negative. Past medical history: See below Surgical history: See below Social history: See below Physical Exam: GENERAL: Wearing a mask. NAD, non-toxic. EYE EXAM: Normal conjunctiva. PERRL, no anisocoria and EOM's grossly intact w/o pain. NECK: Supple, no nuchal rigidity, no adenopathy, non-tender. No signs of meningismus. LUNGS: Clear to auscultation. Normal chest wall mechanics. HEART: NSR, no MRG. ABDOMEN: Abdomen soft, non-tender, normo-active bowel sounds, no masses, no rebound or guarding. BACK: No CVA TTP. SKIN: No rashes and no bruising. UPPER EXTREMITIES: Upper extremities are grossly normal. LOWER EXTREMITIES: Grossly normal, no edema. Negative Homans' sign bilaterally. NEURO EXAM: A&O x3, cranial nerves II-XII grossly intact, normal speech, moves all 4 extremities on command w/o issue. Differential diagnoses: Cardiac ischemia, aortic dissection, pulmonary embolism, pneumothorax, pneumonia, pericarditis, myocarditis, esophageal rupture, GERD, cholecystitis, pancreatitis, musculoskeletal, as well as other pathologies. Course: Patient was seen and evaluated the bedside. Full history physical exam was performed. EKG: Acacian: Chest pain Normal sinus rhythm, rate of 60, normal intervals, normal axis, no obvious ST elevations, possible T WI in V2. Imaging Studies: XR chest 1V portable HISTORY: Atypical Chest Pain COMPARISON: 05/09/2020 FINDINGS: The lungs are clear. Cardiac silhouette is normal in size. No pleural effusions. No pneumothorax. IMPRESSION: No acute process. ACT 112: Negative or not required by law. Electronically signed by: Hussein Hartman M.D. 08/18/2020 9:52 AM Dictated: 08/18/20950Transcribed: 08/18/20950 Cardiac monitoring: An order was placed for continuous cardiac monitoring. The monitor shows a rate of 60 with sinus rhythm. MDM: Patient did present with concern for chest pain. Patient was medicated. The patient did not have much improvement in her symptoms but no obvious ST elevations and troponin is negative. Given the history similar to her prior NSTEMI I did recommend observation. I did speak to the on-call hospitalist and the patient was admitted to the medicine service. 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 Family/Other Breast cancer Great grandmother Denies family history of Ovarian cancer Colorectal cancer Social History Smoking Status: Former smoker Tobacco Type: Cigarettes Age Quit Using Tobacco: 31; Second Hand Exposure: No; Do You Dip or Chew Tobacco: No; Tobacco Cessation Education Requested by Patient: No Hx Alcohol Use: Yes Alcohol type: wine Hx Substance Use: No Preferred Language: [place] Islander Communication Ability: Effective Furniture Manager Required: No Beliefs That Will Affect Care: None Current Living Situation: Spouse current occupational status: retired Other Information That Helps Us Care for You: No Feels Safe at Home: Yes Safety Concerns: Feels Safe At This Time Assistive Devices: None Allergies Allergies Allergy/AdvReac Type Severity Reaction Status Date / Time No Known Allergies Allergy Verified 06/20/20 09:22 Home Meds Home Medications Medication Instructions Recorded Confirmed famotidine 20 mg tablet 20 mg PO BID #180 tab 01/13/19 08/17/20 risperidone 1 mg tablet 1 mg PO QAM tab 01/13/19 08/17/20 sumatriptan succinate 100 mg tablet 100 mg PO UD PRN #9 tab 01/13/19 08/17/20 bupropion HCl 200 mg PO BID 05/09/20 08/17/20 metoprolol succinate 50 mg 50 mg PO DAILY 06/20/20 08/17/20 tablet,extended release 24 hr atorvastatin 80 mg PO DAILY 08/17/20 08/17/20 Previous Rx's Medication Instructions Recorded aspirin 81 mg PO QAM #30 tab 05/11/20 clopidogrel 75 mg tablet 75 mg PO QAM #90 tab 06/13/20 lorazepam 0.5 mg tablet 0.5 mg PO DAILY PRN #4 tab 06/20/20 Results & Data (ED) Vital Signs Vital Signs - 24 hr 08/17/20 22:41 08/17/20 22:49 08/17/20 23:08 Temperature 36.3 C L Temperature Source Temporal Artery Scan Pulse Rate 62 Pulse Rate [Bilateral Apical] 72 Pulse Rate from SpO2 Sensor Respiratory Rate 20 18 Respiratory Effort / Characteristics Non-Labored Spontaneous Non-Labored Spontaneous Respiratory Depth Normal Respiratory Pattern Regular Blood Pressure 157/81 H Blood Pressure [Left Arm] 130/84 Blood Pressure Mean 106 Blood Pressure Mean [Left Arm] 99 Blood Pressure Position Sitting Pulse Oximetry 98 97 Oxygen Delivery Method Room Air Room Air Room Air Sepsis Recent Fever Within 48 Hours No Sepsis New/Unexplained Change in Mental Status N/A Sepsis Action Taken by Nursing No Action Required 08/17/20 23:30 08/17/20 23:50 08/18/20 00:00 Temperature Temperature Source Pulse Rate 65 59 L 57 L Pulse Rate [Bilateral Apical] Pulse Rate from SpO2 Sensor 64 57 L 57 L Respiratory Rate 22 14 15 Respiratory Effort / Characteristics Respiratory Depth Respiratory Pattern Blood Pressure 123/83 107/70 Blood Pressure [Left Arm] Blood Pressure Mean 96 82 Blood Pressure Mean [Left Arm] Blood Pressure Position Pulse Oximetry 95 93 93 Oxygen Delivery Method Room Air Room Air Room Air Sepsis Recent Fever Within 48 Hours Sepsis New/Unexplained Change in Mental Status Sepsis Action Taken by Nursing 08/18/20 00:01 08/18/20 00:10 08/18/20 00:30 Temperature Temperature Source Pulse Rate 58 L 57 L 58 L Pulse Rate [Bilateral Apical] Pulse Rate from SpO2 Sensor 58 L 58 L 57 L Respiratory Rate 15 13 12 Respiratory Effort / Characteristics Respiratory Depth Respiratory Pattern Blood Pressure 107/70 Blood Pressure [Left Arm] Blood Pressure Mean 82 Blood Pressure Mean [Left Arm] Blood Pressure Position Pulse Oximetry 93 94 97 Oxygen Delivery Method Room Air Room Air Room Air Sepsis Recent Fever Within 48 Hours Sepsis New/Unexplained Change in Mental Status Sepsis Action Taken by Nursing 08/18/20 01:00 08/18/20 01:01 08/18/20 01:02 Temperature Temperature Source Pulse Rate 62 56 L Pulse Rate [Bilateral Apical] 56 L Pulse Rate from SpO2 Sensor 61 56 L Respiratory Rate 20 12 20 Respiratory Effort / Characteristics Respiratory Depth Respiratory Pattern Blood Pressure 125/84 Blood Pressure [Left Arm] 125/84 Blood Pressure Mean 97 Blood Pressure Mean [Left Arm] 97 Blood Pressure Position Pulse Oximetry 95 97 94 Oxygen Delivery Method Room Air Room Air Room Air Sepsis Recent Fever Within 48 Hours Sepsis New/Unexplained Change in Mental Status Sepsis Action Taken by Nursing 08/18/20 01:30 Temperature Temperature Source Pulse Rate 53 L Pulse Rate [Bilateral Apical] Pulse Rate from SpO2 Sensor 53 L Respiratory Rate 12 Respiratory Effort / Characteristics Respiratory Depth Respiratory Pattern Blood Pressure Blood Pressure [Left Arm] Blood Pressure Mean Blood Pressure Mean [Left Arm] Blood Pressure Position Pulse Oximetry 96 Oxygen Delivery Method Room Air Sepsis Recent Fever Within 48 Hours Sepsis New/Unexplained Change in Mental Status Sepsis Action Taken by Skilled Nursing Medications Current Medication List: was personally reviewed by me Laboratory Data Attestation: I reviewed the patient's lab results. Result diagrams: 08/18/20 06:21 08/18/20 06:21 Lab Results 08/17/20 08/17/20 08/17/20 Range/Units 23:26 23:26 23:26 WBC 7.13 (4.8-10.8) K/uL RBC 4.46 (4.2-5.4) M/uL Hgb 13.2 (12.0-16.0) g/dL Hct 39.6 (37-47) % MCV 88.8 (80-100) fL MCH 29.6 (25-34) pg MCHC 33.3 (32-36) g/dL RDW Std Deviation 42.1 (36.4-46.3) fL RDW Coeff of Della 13.0 (11.5-14.5) % Plt Count 280 (130-400) K/uL MPV 10.3 (7.4-10.4) fL Immature Gran % (Auto) 0.1 % Neut % (Auto) 53.9 % Lymph % (Auto) 35.2 % [place] % (Auto) 8.4 % Eos % (Auto) 2.1 % Baso % (Auto) 0.3 % Neut # (Auto) 3.84 (1.4-6.5) K/uL Lymph # (Auto) 2.51 (1.2-3.4) K/uL [place] # (Auto) 0.60 H (0.11-0.59) K/uL Eos # (Auto) 0.15 (0-0.5) K/uL Baso # (Auto) 0.02 (0-0.2) K/uL Immature Gran # (Auto) 0.01 (0.00-0.02) K/uL PT 11.4 (9.0-12.0) Seconds INR 1.1 (0.9-1.1) APTT 26.1 (21.0-31.0) Seconds PTT Ratio 1.0 Sodium 138 (136-145) mmol/L Potassium 3.8 (3.5-5.1) mmol/L Chloride 107 (98-107) mmol/L Carbon Dioxide 26 (21-32) mmol/L Anion Gap 5.0 (3-11) BUN 15 (7-18) mg/dl Creatinine 1.11 (0.6-1.2) mg/dl Est Cr Clr Drug Dosing 56.5 ml/min Est GFR ( Amer) 60.8 Est GFR (Non-Af Amer) 52.4 BUN/Creatinine Ratio 13.9 (10-20) Glucose 91 (70-99) mg/dl Calcium 9.0 (8.5-10.1) mg/dl Total Bilirubin 0.3 (0.2-1) mg/dl AST 16 (15-37) U/L ALT 23 (12-78) U/L Alkaline Phosphatase 68 (45-117) U/L Troponin I < 0.015 (0-0.045) ng/ml Total Protein 7.1 (6.4-8.2) gm/dl Albumin 3.9 (3.4-5.0) gm/dl Globulin 3.2 (2.5-4.0) gm/dl Albumin/Globulin Ratio 1.2 (0.9-2) Lipase 128 (73-393) U/L COVID-19 Eval Order SARS-CoV-2 (PCR) (Negative) Influenza Type A (PCR) (Neg) Influenza Type B (PCR) (Neg) RSV (RT-PCR) (Neg) 08/18/20 08/18/20 Range/Units 00:59 00:59 WBC (4.8-10.8) K/uL RBC (4.2-5.4) M/uL Hgb (12.0-16.0) g/dL Hct (37-47) % MCV (80-100) fL MCH (25-34) pg MCHC (32-36) g/dL RDW Std Deviation (36.4-46.3) fL RDW Coeff of Della (11.5-14.5) % Plt Count (130-400) K/uL MPV (7.4-10.4) fL Immature Gran % (Auto) % Neut % (Auto) % Lymph % (Auto) % [place] % (Auto) % Eos % (Auto) % Baso % (Auto) % Neut # (Auto) (1.4-6.5) K/uL Lymph # (Auto) (1.2-3.4) K/uL [place] # (Auto) (0.11-0.59) K/uL Eos # (Auto) (0-0.5) K/uL Baso # (Auto) (0-0.2) K/uL Immature Gran # (Auto) (0.00-0.02) K/uL PT (9.0-12.0) Seconds INR (0.9-1.1) APTT (21.0-31.0) Seconds PTT Ratio Sodium (136-145) mmol/L Potassium (3.5-5.1) mmol/L Chloride (98-107) mmol/L Carbon Dioxide (21-32) mmol/L Anion Gap (3-11) BUN (7-18) mg/dl Creatinine (0.6-1.2) mg/dl Est Cr Clr Drug Dosing ml/min Est GFR ( Amer) Est GFR (Non-Af Amer) BUN/Creatinine Ratio (10-20) Glucose (70-99) mg/dl Calcium (8.5-10.1) mg/dl Total Bilirubin (0.2-1) mg/dl AST (15-37) U/L ALT (12-78) U/L Alkaline Phosphatase (45-117) U/L Troponin I (0-0.045) ng/ml Total Protein (6.4-8.2) gm/dl Albumin (3.4-5.0) gm/dl Globulin (2.5-4.0) gm/dl Albumin/Globulin Ratio (0.9-2) Lipase (73-393) U/L COVID-19 Eval Order [facility]Rsv at [facility] SARS-CoV-2 (PCR) NEGATIVE (Negative) Influenza Type A (PCR) Negative (Neg) Influenza Type B (PCR) Negative (Neg) RSV (RT-PCR) Negative (Neg) Administered Medications Discontinued Medications Aspirin (Aspirin Chew 324 Mg) 324 mg PO NOW STA Stop: 08/17/20 23:37 Last Admin: 08/17/20 23:47 Dose: 324 mg Documented by: [id number] Aspirin (Aspirin 81 Mg Ectab) 81 mg PO [facility] Stop: 09/17/20 08:59 Last Admin: 08/18/20 08:47 Dose: 81 mg Documented by: [id number] Atorvastatin Calcium (Atorvastatin 40 Mg Tab) 80 mg PO DAILY [facility] Stop: 09/17/20 08:59 Last Admin: 08/18/20 08:47 Dose: 80 mg Documented by: [id number] Bupropion HCl (Bupropion Sr 100 Mg Tabcr) 200 mg PO BID [facility] Stop: 09/17/20 08:59 Last Admin: 08/18/20 08:48 Dose: 200 mg Documented by: [id number] Clopidogrel Bisulfate (Clopidogrel Bisulfate 75 Mg Tab) 75 mg PO QAM [facility] Stop: 09/17/20 08:59 Last Admin: 08/18/20 08:48 Dose: 75 mg Documented by: [id number] Famotidine (Famotidine 20 Mg Tab) 20 mg PO BID [facility]A Stop: 09/17/20 08:59 Last Admin: 08/18/20 08:48 Dose: 20 mg Documented by: [id number] Heparin Sodium (Porcine) (Heparin Sod 5,000 Unit/0.5 Ml Vial) 5,000 units SQ Q8 [facility] Stop: 09/17/20 05:59 Last Admin: 08/18/20 06:13 Dose: 5,000 units Documented by: [id number] Metoprolol Succinate (Metoprolol Succ 50mg Ext Rel Tab) 50 mg PO DAILY [facility] Stop: 09/17/20 08:59 Last Admin: 08/18/20 10:52 Dose: Not Given Documented by: [id number] Nitroglycerin (Nitroglycerin 2% Ointment 30gm Tube) 1 inch EXT NOW STA Stop: 08/17/20 23:29 Last Admin: 08/17/20 23:47 Dose: 1 inch Documented by: [id number] Ondansetron HCl (Ondansetron Inj 2 Mg/Ml 2 Ml Vial) 4 mg IV NOW STA Stop: 08/17/20 23:29 Last Admin: 08/17/20 23:48 Dose: 4 mg Documented by: [id number] Risperidone (Risperidone 1 Mg Tablet) 1 mg PO QAM [facility] Stop: 09/17/20 08:59 Last Admin: 08/18/20 08:48 Dose: 1 mg Documented by: [id number] Discharge Plan Visit Data Chief Complaint: Chest Pain Stated Complaint: CHEST PAIN, PREVIOUS HEART ATTACK ED Provider: Ion Gillette Discharge Problem: Atypical chest pain, History of non-ST elevation myocardial infarction (NSTEMI) Patient Disposition: Admitted As Inpatient Discharge Instructions Interventions: ED Discharge Assessment Last Done: 08/18/20 02:11
--- NOTE | 2020-08-18 01:32 | History & Physical Report ---
Date of Service August 18, 2020 Assessment & Plan (1) Chest pain: Patient is a pleasant 65 year old female with PMHx NSTEMI, HLD, Depression, Anxiety, CKD 3, Migraine Headaches, who presents for chief complaint of on and off chest pain for the past 12 hours with similar feelings to her prior NSTEMI. Chest Pain Rule Out -With chest pain beginning over 16 hours prior to arrival to ED and being throughout the day. -Troponin negative on admission -EKG with sinus rhythm, no obvious ST-T wave abnormalities -Given 324mg ASA, Nitrostat SL x1, Nitro paste 1 inch, and Zofran in the ED -Low suspicion that patients pain at this time was secondary to a coronary event -Will monitor on Telemetry overnight and repeat EKG in the morning. -Continue home ASA, Plavix, Metoprolol, Atorvastatin. Anxiety/Depression -Continue home Risperidone -Continue home Bupropion GERD -Continue home Famotidine Migraines -Continue home Sumatriptan PRN Dispo: Med/Surg Telemetry for monitoring, suspect likely discharge if no recurrence of pain or EKG changes in the AM/early afternoon. FEN: HH diet DVT:Heparin 5000 TID Code: Full History of Present Illness Chief Complaint: Chest Pain Primary Care Provider: Matthew Rogers MD Patient is a pleasant 65 year old female with PMHx NSTEMI, HLD, Depression, Anxiety, CKD 3, Migraine Headaches, who presents for chief complaint of on and off chest pain for the past 12 hours with similar feelings to her prior NSTEMI. Patient notes that she woke up around 4AM this morning with pain in her arms and shoulders and felt slightly short of breath. She then felt a sharp stabbing sensation at her lower sternum which would last a few seconds and go away. She felt that this chest pain was similar to her prior NSTEMI in April of 2020. She notes that while walking up multiple hills earlier in the day she again was noting it was more difficult, felt more SOB, and had 1-2 episodes of the sharp chest pain lasting a few seconds and resolving on their own. She was laying in bed tonight when she felt that it would be better to be examined as she was having feelings of dread that she would "not make it through the night." She notes she has not missed any of her medications including her Aspirin and her Plavix. Currently while seated in the ED patient notes that she is actually feeling better than she had all day. She had not had any episodes of her chest pain and was not having any SOB. She also denied any fever, chills, chest pressure, abdominal pain, dizziness, headache. Med Hx: CKD3, NSTEMI, Depression, Anxiety, Migraines, HLD Surg Hx: Tonsillectomy Soc Hx: 10 pack year hx, quit at age 33. No alcohol use. Hx marijuana use in the 70's, none currently. Allergies Allergy/AdvReac Type Severity Reaction Status Date / Time No Known Allergies Allergy Verified 06/20/20 09:22 Home Medications Medication Instructions Recorded Confirmed Type famotidine 20 mg tablet 20 mg PO BID #180 tab 01/13/19 08/17/20 History risperidone 1 mg tablet 1 mg PO QAM tab 01/13/19 08/17/20 History sumatriptan succinate 100 mg tablet 100 mg PO UD PRN #9 tab 01/13/19 08/17/20 History bupropion HCl 200 mg PO BID 05/09/20 08/17/20 History aspirin 81 mg PO QAM #30 tab 05/11/20 08/17/20 Rx clopidogrel 75 mg tablet 75 mg PO QAM #90 tab 06/13/20 08/17/20 Rx lorazepam 0.5 mg tablet 0.5 mg PO DAILY PRN #4 tab 06/20/20 08/17/20 Rx metoprolol succinate 50 mg 50 mg PO DAILY 06/20/20 08/17/20 History tablet,extended release 24 hr atorvastatin 80 mg PO DAILY 08/17/20 08/17/20 History Past Med/Surg History Medical History Chronic kidney disease, stage 3 Depression with anxiety Herpes simplex vaginal HLD (hyperlipidemia) Left ventricular outflow tract obstruction Migraine NSTEMI (non-ST elevated myocardial infarction) 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 Family/Other Breast cancer Great grandmother Denies family history of Ovarian cancer Colorectal cancer Social History Smoking Status: Former smoker Tobacco Type: Cigarettes Age Quit Using Tobacco: 31; Second Hand Exposure: No; Do You Dip or Chew Tobacco: No; Tobacco Cessation Education Requested by Patient: No Hx Alcohol Use: Yes Alcohol type: wine Hx Substance Use: No Preferred Language: Irish Communication Ability: Effective Market Risk Specialist Required: No Beliefs That Will Affect Care: None Current Living Situation: Spouse current occupational status: retired Other Information That Helps Us Care for You: No Feels Safe at Home: Yes Safety Concerns: Feels Safe At This Time Assistive Devices: None Review of Systems Review of Systems: All systems reviewed & are unremarkable except as noted in Subjective Physical Exam Constitutional: well developed and well nourished; no acute distress and not ill appearing Eyes: PERRL, conjunctivae normal, anicteric sclerae ENMT: external ear and nose normal, oropharynx normal Neck: trachea midline, no thyromegaly Respiratory: normal respiratory effort, lungs clear to auscultation Cardiovascular: Rate/Rhythm: regular rate and regular rhythm Heart Sounds: normal S1, normal S2 and + murmur (1-2/6 holo loudest at the 5th intercostal space ) Vessels: posterior tibial pulses present, dorsalis pedis pulses present, radial pulses present and ulnar pulses present Extremities: no edema Gastrointestinal (Abdomen): normal bowel sounds, soft, nontender, no hepatosplenomegaly Musculoskeletal: no cyanosis or clubbing, extremities motor strength 5/5 Neurologic: PERRL, EOMI, accommodation nl, no face palsy, no dysarthria Psychiatric: A+Ox3, euthymic affect Results & Data Results & Data ([facility]) Vital Signs (Past 12 Hours) Vital Signs Temp Pulse Pulse Resp BP BP Pulse Ox 08/18/20 01:02 56 L 20 125/84 94 08/18/20 01:01 56 L 12 97 08/18/20 01:00 62 20 125/84 95 08/18/20 00:30 58 L 12 97 08/18/20 00:10 57 L 13 107/70 94 08/18/20 00:01 58 L 15 93 08/18/20 00:00 57 L 15 107/70 93 08/17/20 23:50 59 L 14 123/83 93 08/17/20 23:30 65 22 95 08/17/20 23:08 72 18 130/84 97 08/17/20 22:41 36.3 C L 62 20 157/81 H 98 Supervising Physician Co-Signing Physician Notes Attending addendum: I have supervised the medical residents activities, and agree with the H&P unless as otherwise noted. Assessment and Plan: Chest pain/CAD/hypertension/NSTEMI/LVOT- The patient will be admitted to telemetry for serial cardiac enzymes, serial EKG's, cardiac rhythm monitoring. Continue aspirin, clopidogrel, metoprolol succinate. Consult cardiology Hyperlipidemia- Continue atorvastatin Anxiety with depression- Continue bupropion and risperidone Remaining orders and notations as noted Resident Activity Tracking Resident Involvement: Resident Care Provided Care Provided: Adult Hospital Medicine
[2020-08-18 01:48] LABS: Influenza A virus by PCR Negative (Neg); Influenza B virus by PCR Negative (Neg); RSV by PCR Negative (Neg); SARS CoV2 RNA(COVID-19) InHosp NEGATIVE (Negative)
[2020-08-18] MEDS ORDERED: NITROGLYCERIN SL 0.4 MG/TAB TAB SL PRN (02:38)
[2020-08-18] MEDS ORDERED: ONDANSETRON INJ 2 MG/ML 2 ML VIAL IV PRN (02:38)
[2020-08-18] MEDS ORDERED: ACETAMINOPHEN 325 MG TAB PO PRN (02:38)
[2020-08-18] MEDS ORDERED: LORazepam 0.5 MG TAB PO PRN (02:38)
[2020-08-18] MEDS ORDERED: SUMAtriptan succinate 100 MG TAB PO PRN (02:38)
[2020-08-18] MEDS ORDERED: HEPARIN SOD 5,000 UNIT/0.5 ML VIAL SQ SCH (06:00)
[2020-08-18 06:37] LABS: Basophils # (auto) 0.02 K/uL (0-0.2); Basophils % (auto) 0.3 %; Eosinophils # (auto) 0.15 K/uL (0-0.5); Eosinophils % (auto) 2.2 %; Hematocrit (blood only) 39.2 % (37-47); Hemoglobin 13.1 g/dL (12.0-16.0); Immature Granulocytes # (auto) 0.01 K/uL (0.00-0.02); Immature Granulocytes % (auto) 0.1 %; Lymphocytes # (auto) 2.34 K/uL (1.2-3.4); Mean Corpuscular Hemoglobin 29.8 pg (25-34); Mean Corpuscular Hgb Conc 33.4 g/dL (32-36); Mean Corpuscular Volume 89.1 fL (80-100); Mean Platelet Volume 10.3 fL (7.4-10.4); Monocytes % (auto) 7.5 %; Neutrophils # (auto) 3.66 K/uL (1.4-6.5); Neutrophils % (auto) 54.9 %; Platelet Count 274 K/uL (130-400); RDW Coefficient of Variation 13.2 % (11.5-14.5); RDW Standard Deviation 43.1 fL (36.4-46.3); White Blood Count 6.68 K/uL (4.8-10.8)
[2020-08-18 07:19] LABS: BUN Creatinine Ratio 13.5 (10-20); Calcium 8.9 mg/dl (8.5-10.1); Creatinine Clr Calc Pharmacy 61.4 ml/min; Est GFR (African American) 67.3; Est GFR (Non-African American) 58.1; Magnesium 2.2 mg/dl (1.8-2.4); Phosphorus 3.9 mg/dl (2.5-4.9); Potassium 4.1 mmol/L (3.5-5.1)
[2020-08-18] MEDS ORDERED: ASPIRIN 81 MG ECTAB PO SCH (09:00)
[2020-08-18] MEDS ORDERED: CLOPIDOGREL BISULFATE 75 MG TAB PO SCH (09:00)
[2020-08-18] MEDS ORDERED: FAMOTIDINE 20 MG TAB PO SCH (09:00)
[2020-08-18] MEDS ORDERED: METOPROLOL SUCC 50MG EXT REL TAB PO SCH (09:00)
[2020-08-18] MEDS ORDERED: buPROPion SR 100 MG TABCR PO SCH (09:00)
[2020-08-18] MEDS ORDERED: risperiDONE 1 MG TABLET PO SCH (09:00)
[2020-08-18] MEDS ORDERED: ATORVASTATIN 40 MG TAB PO SCH (09:00)
--- NOTE | 2020-08-18 09:53 | XRay Report ---
XR chest 1V portable HISTORY: Atypical Chest Pain COMPARISON: 05/09/2020 FINDINGS: The lungs are clear. Cardiac silhouette is normal in size. No pleural effusions. No pneumot horax. IMPRESSION: No acute process. ACT 112: Negative or not required by law. Electronically signed by: Hussein Hartman M.D. 08/18/2020 9:52 AM
--- NOTE | 2020-08-18 13:21 | Discharge Summary ---
Date of Service August 18, 2020 Admission HPI Per Admitting Provider Patient is a pleasant 65 year old female with PMHx NSTEMI, HLD, Depression, Anxiety, CKD 3, Migraine Headaches, who presents for chief complaint of on and off chest pain for the past 12 hours with similar feelings to her prior NSTEMI. Patient notes that she woke up around 4AM this morning with pain in her arms and shoulders and felt slightly short of breath. She then felt a sharp stabbing sensation at her lower sternum which would last a few seconds and go away. She felt that this chest pain was similar to her prior NSTEMI in April of 2020. She notes that while walking up multiple hills earlier in the day she again was noting it was more difficult, felt more SOB, and had 1-2 episodes of the sharp chest pain lasting a few seconds and resolving on their own. She was laying in bed tonight when she felt that it would be better to be examined as she was having feelings of dread that she would "not make it through the night." She notes she has not missed any of her medications including her Aspirin and her Plavix. Currently while seated in the ED patient notes that she is actually feeling better than she had all day. She had not had any episodes of her chest pain and was not having any SOB. She also denied any fever, chills, chest pressure, abdominal pain, dizziness, headache. Med Hx: CKD3, NSTEMI, Depression, Anxiety, Migraines, HLD Surg Hx: Tonsillectomy Soc Hx: 10 pack year hx, quit at age 33. No alcohol use. Hx marijuana use in the 70's, none currently. Principal Diagnosis chest pain Discharge Exam Constitutional: well developed and well nourished; no acute distress and not ill appearing Eyes: PERRL, conjunctivae normal, anicteric sclerae ENMT: external ear and nose normal, oropharynx normal Neck: trachea midline, no thyromegaly Respiratory: normal respiratory effort, lungs clear to auscultation Cardiovascular: Rate/Rhythm: regular rate and regular rhythm Heart Sounds: n ormal S1, normal S2 and + murmur (1-2/6 holo loudest at the 5th intercostal space ) Vessels: posterior tibial pulses present, dorsalis pedis pulses present, radial pulses present and ulnar pulses present Extremities: no edema Gastrointestinal (Abdomen): normal bowel sounds, soft, nontender, no hepatosplenomegaly Musculoskeletal: no cyanosis or clubbing, extremities motor strength 5/5 Neurologic: PERRL, EOMI, accommodation nl, no face palsy, no dysarthria Psychiatric: A+Ox3, euthymic affect Discharge Data Allergies Allergy/AdvReac Type Severity Reaction Status Date / Time No Known Allergies Allergy Verified 08/22/20 13:36 Consultations 08/18/20 00:39 ED Decision to Admit Stat Hospital Course (1) Chest pain: Patient is a pleasant 65 year old female with PMHx NSTEMI, HLD, Depression, Anxiety, CKD 3, Migraine Headaches, who presents for chief complaint of on and off chest pain for the past 12 hours with similar feelings to her prior NSTEMI. Chest Pain Rule Out -With chest pain beginning over 16 hours prior to arrival to ED and being throughout the day. -Troponin negative on admission -EKG with sinus rhythm, no obvious ST-T wave abnormalities -Given 324mg ASA, Nitrostat SL x1, Nitro paste 1 inch, and Zofran in the ED -Low suspicion that patients pain at this time was secondary to a coronary event -Will monitor on Telemetry overnight and repeat EKG in the morning. -Continue home ASA, Plavix, Metoprolol, Atorvastatin. On discharge: D/W cardio: due to negative coronoary cath eval in [facility] and normal echo. No need for further evaluation at this time. cancelled consult. ok to discharge patient. Anxiety/Depression -Continue home Risperidone -Continue home Bupropion GERD -Continue home Famotidine Migraines -Continue home Sumatriptan PRN Dispo: Med/Surg Telemetry for monitoring, suspect likely discharge if no recurrence of pain or EKG changes in the AM/early afternoon. FEN: HH diet DVT:Heparin 5000 TID Code: Full Total Time Total Time Spent Total Time Spent (In Minutes): 32 Total Time Includes: Examination of the Patient, Discharge Planning and Medication Reconciliation Discharge Plan Discharge Items Patient Disposition: Home - Self-Care Reason For Visit: CHEST PAIN R/O Discharge Diagnosis: chest pain Activity: Resume your previous activity Non-emergency contact: Primary Care Provider Call non-emergency contact if: you have any medication questions Follow-up/Referrals: Matthew Rogers MD [Primary Care Provider] - Diet: Heart Healthy Addtl Attending Provider Instructions: You were seen or chest pain. Coronary (heart) disease appears less likely given your negative workup. Will recommend followup with your PCP in 1-2 weeks. Pending Studies at Discharge: No Stand-Alone Forms: My [facility], Smoking Cessation Medications and DC Order Prescriptions: Continued clopidogrel 75 mg tablet 75 mg PO QAM Qty: 90 RF: 3 risperidone 1 mg tablet 1 mg PO QAM RF: 0 famotidine 20 mg tablet 20 mg PO BID Qty: 180 RF: 0 sumatriptan succinate 100 mg tablet 100 mg PO UD PRN (Reason: Migraine Headache) Qty: 9 RF: 0 lorazepam [Ativan] 0.5 mg tablet 0.5 mg PO DAILY PRN (Reason: anxiety) Qty: 4 RF: 0 bupropion HCl 200 mg tablet sustained-release 12 hr 200 mg PO BID RF: 0 aspirin 81 mg Tablet,Delayed Release (Dr/Ec) 81 mg PO QAM Qty: 30 RF: 0 atorvastatin 80 mg tablet 80 mg PO DAILY RF: 0 No Action metoprolol succinate 100 mg tablet extended release 24 hr 150 mg PO BID 30 Days Qty: 90 RF: 2 calcium carbonate-vitamin D3 1 tab PO DAILY RF: 0 Discharge Orders: Discharge Order (Routine); Ordered 08/18/20 Ordered By: Mario Alberto Romero/Other Patient Handouts: Symptoms of a Heart Attack, Measuring Your Pain Admission Data Admit Date/Time: 08/18/20 01:36 Attending Provider: Mario Alberto Soto Admit Provider: Amish Ruiz Primary Care Provider: Matthew Rogers Other Interventions: Discharge Summary Assessment (RN) Last Done: 08/18/20 14:06 Coding Level of Care Code 73941 OBS Care - Discharge Diagnoses Chest pain R07.9
--- NOTE | 2020-08-18 15:02 | Electrocardiogram Report ---
Test Reason : Blood Pressure : / mmHG Vent. Rate : 060 BPM Atrial Rate : 060 BPM P-R Int : 150 ms QRS Dur : 084 ms QT Int : 414 ms P-R-T Axes : 023 065 034 degrees QTc Int : 414 ms Normal sinus rhythm Normal ECG When compared with ECG of 09-MAY-2020 18:50, Nonspecific T wave abnormality now evident in Anterior leads Confirmed by Aaron Pena ([id number]) on 08/18/2020 3:01:51 PM Referred By: REFERRED SELF Confirmed By:Aaron Pena
--- NOTE | 2020-08-19 03:40 | Billing Data ---
Date of Service August 19, 2020 Coding Level of Care Code 65863 OBS Care - Level 3
== END 2020-08-18 14:46 | disposition home or self-care (01) ==
LOC: ED 22:39 → 2W 08-18 01:36 → SUATTDRO 08-18 01:36 → INTOOBSV 08-18 01:36 → 2W 08-18 02:11

== ENCOUNTER 2020-09-30 16:16 | Observation (INO) ==
[2020-09-30] MEDS ORDERED: NITROGLYCERIN 2% OINTMENT 30GM TUBE EXT STA (16:30)
--- NOTE | 2020-09-30 16:36 | Emergency Department Note ---
Impression & Plan Precordial chest pain, SOB (shortness of breath), Acute electrocardiogram changes, History of IA (myocardial infarction) ED Provider Note NAME: LARISSA DUNCAN AGE: 65 SEX: F : 1955 ARRIVES VIA: Walk-In INFORMANT: [Patient] ED PROVIDER(S): [Antonino Lyn MD] CHIEF COMPLAINT: Chest pain HISTORY OF PRESENT ILLNESS: The patient is a 65-year-old female presents to the ED with shortness of breath and chest pain. The patient states that she has noticed the shortness of breath for about 3 days. The shortness of breath was all the time but worse with exertion. Her chest was somewhat tight. Today, she thought the breathing issue worsened. About an hour ago, she began having pain in her back, shoulders and jaw. The pain is a 4/10. Exertion worsens this pain. She did sweat. No nausea. The patient states that she had a lot of congestion in her nose last night, this seems to have gone away today. There has been no fever. She has not really had excessive cough. The patient has had a non-ST elevation IA. She had a cardiac catheterization though 5 months ago and, no coronary disease was noted. The cause for her non- STEMI was unclear. She is on dual antiplatelet therapy, aspirin and Plavix. REVIEW OF SYSTEMS: See HPI for pertinent positives and negatives. A total of ten systems were reviewed and were otherwise negative. PMHx/PSHx: See Below SOCIAL HISTORY: See Below. PHYSICAL EXAM: GENERAL: Patient is in no acute distress. HEENT: No acute trauma, normocephalic atraumatic, mucous membranes moist, no nasal congestion, no scleral icterus. NECK: No stridor, no adenopathy, no meningismus, trachea is midline. LUNGS: Clear to auscultation bilaterally, no wheeze, no rhonchi, breath sounds equal. HEART: Without murmurs gallops or rubs, regular rate and rhythm. ABDOMEN: Soft, nontender, bowel sounds positive, no hernias, no peritonitis. EXTREMITIES: No cyanosis or edema, full range of motion of all the joints without pain or difficulty, no signs for acute trauma. NEUROLOGIC: Oriented x 3, no acute motor or sensory deficits, no focal weakness. SKIN: No rash, no jaundice, no diaphoresis. DIFFERENTIAL DIAGNOSIS: Cardiac ischemia, aortic dissection, pulmonary embolism, pneumothorax, pneumonia, pericarditis, myocarditis, esophageal rupture, GERD, cholecystitis, pancreatitis, musculoskeletal, as well as other pathologies. EMERGENCY DEPARTMENT COURSE/PROCEDURES: ECG: Indication was chest pain. The ECG shows a normal sinus rhythm with a rate of 64. There is some nonspecific ST change in the anterior and lateral leads. No PVCs, no ST elevation. QTc is 398. Compared to an ECG from 18 August 2020, the nonspecific change is all new. Continuous Cardiac Monitoring: An order was placed for continuous cardiac monitoring. The monitor shows a rate of 64 with normal sinus rhythm. MEDICAL DECISION MAKING: There is no leukocytosis or concerning anemia. There is a normal platelet count. No coagulopathy. D-dimer testing was negative, with a negative D-dimer, PE seems less likely. There was no significant electrolyte abnormality or kidney failure. No concerning liver enzyme elevation. No evidence for p ancreatitis. ECG shows a sinus rhythm with some nonspecific ST change. The EKG was changed when compared to previous EKGs. No ST elevation. Cardiac enzyme testing x2 does not show any evidence for acute cardiac injury. Chest film did not show pneumonia or pneumothorax. Chest CT did not show PE or aortic dissection. Covid and influenza testing returned negative. The patient was given nitroglycerin paste. She felt better with this medication. The patient presents with chest pain. She had improvement with nitroglycerin. She has a history of a non-ST elevation IA. I did speak with cardiology. Given the circumstances, a hospital stay was felt warranted. The patient was told the results of her testing, she is in agreement with the hospital stay. I spoke with case management, the on-call hospitalist was consulted. 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 Family/Other Breast cancer Great grandmother Denies family history of Ovarian cancer Colorectal cancer Social History Smoking Status: Former smoker Tobacco Type: Cigarettes Age Quit Using Tobacco: 31; Second Hand Exposure: No; Hx Alcohol Use: Yes Alcohol type: wine Hx Substance Use: No Preferred Language: Uzbek Communication Ability: Effective Weights And Measures Inspector Required: No Beliefs That Will Affect Care: None Current Living Situation: Spouse current occupational status: retired Other Information That Helps Us Care for You: No Feels Safe at Home: Yes Safety Concerns: Feels Safe At This Time Assistive Devices: None Assistive Devices Comment: reading glasses Allergies Allergies Allergy/AdvReac Type Severity Reaction Status Date / Time No Known Allergies Allergy Verified 09/30/20 17:30 Home Meds Home Medications Medication Instructions Recorded Confirmed famotidine 20 mg tablet 20 mg PO BID #180 tab 01/13/19 09/30/20 risperidone 1 mg tablet 1 mg PO QAM tab 01/13/19 09/30/20 sumatriptan succinate 100 mg tablet 100 mg PO UD PRN #9 tab 01/13/19 09/30/20 bupropion HCl 200 mg PO BID 05/09/20 09/30/20 atorvastatin 80 mg PO DAILY 08/17/20 09/30/20 calcium carbonate-vitamin D3 1 tab PO DAILY 08/22/20 09/30/20 cholecalciferol (vitamin D3) 50 mcg PO DAILY 09/30/20 09/30/20 [Vitamin D3] metoprolol succinate 150 mg PO BID 09/30/20 09/30/20 Previous Rx's Medication Instructions Recorded aspirin 81 mg PO QAM #30 tab 05/11/20 clopidogrel 75 mg tablet 75 mg PO QAM #90 tab 06/13/20 Results & Data (ED) Vital Signs Vital Signs - 24 hr 09/30/20 16:18 09/30/20 16:49 09/30/20 16:54 Temperature 36.9 C Temperature Source Temporal Artery Scan Pulse Rate 64 63 43 L Pulse Rate from SpO2 Sensor 63 42 L Respiratory Rate 16 15 14 Respiratory Effort / Characteristics Non-Labored Spontaneous Respiratory Depth Normal Respiratory Pattern Regular Blood Pressure 139/86 119/79 157/78 H Blood Pressure Mean 103 92 104 Blood Pressure Position Sitting Pulse Oximetry 95 96 94 Oxygen Delivery Method Room Air Sepsis Recent Fever Within 48 Hours No Sepsis New/Unexplained Change in Mental Status N/A Sepsis Action Taken by Nursing No Action Required 09/30/20 18:29 Temperature Temperature Source Pulse Rate 61 Pulse Rate from SpO2 Sensor 61 Respiratory Rate 19 Respiratory Effort / Characteristics Respiratory Depth Respiratory Pattern Blood Pressure 143/89 H Blood Pressure Mean 107 Blood Pressure Position Pulse Oximetry 97 Oxygen Delivery Method Sepsis Recent Fever Within 48 Hours Sepsis New/Unexplained Change in Mental Status Sepsis Action Taken by Usp Medications Current Medication List: was personally reviewed by me Laboratory Data Attestation: I reviewed the patient's lab results. Result diagrams: 09/30/20 16:30 09/30/20 16:30 Lab Results 09/30/20 09/30/20 09/30/20 Range/Units 16:30 16:30 16:30 WBC 6.92 (4.8-10.8) K/uL RBC 4.52 (4.2-5.4) M/uL Hgb 13.7 (12.0-16.0) g/dL Hct 40.4 (37-47) % MCV 89.4 (80-100) fL MCH 30.3 (25-34) pg MCHC 33.9 (32-36) g/dL RDW Std Deviation 42.9 (36.4-46.3) fL RDW Coeff of Della 13.1 (11.5-14.5) % Plt Count 286 (130-400) K/uL MPV 10.3 (7.4-10.4) fL Immature Gran % (Auto) 0.1 % Neut % (Auto) 61.2 % Lymph % (Auto) 26.6 % [place] % (Auto) 10.0 % Eos % (Auto) 1.7 % Baso % (Auto) 0.4 % Neut # (Auto) 4.23 (1.4-6.5) K/uL Lymph # (Auto) 1.84 (1.2-3.4) K/uL [place] # (Auto) 0.69 H (0.11-0.59) K/uL Eos # (Auto) 0.12 (0-0.5) K/uL Baso # (Auto) 0.03 (0-0.2) K/uL Immature Gran # (Auto) 0.01 (0.00-0.02) K/uL PT 11.2 (9.0-12.0) Seconds INR 1.1 (0.9-1.1) APTT (21.0-31.0) Seconds PTT Ratio D-Dimer < 190 (0-500) ug/L FEU Sodium 137 (136-145) mmol/L Potassium 4.2 (3.5-5.1) mmol/L Chloride 105 (98-107) mmol/L Carbon Dioxide 24 (21-32) mmol/L Anion Gap 8.0 (3-11) BUN 23 H (7-18) mg/dl Creatinine 1.02 (0.6-1.2) mg/dl Est Cr Clr Drug Dosing 61.6 ml/min Est GFR ( Amer) 67.3 Est GFR (Non-Af Amer) 58.1 BUN/Creatinine Ratio 22.5 H (10-20) Glucose 88 (70-99) mg/dl Calcium 9.1 (8.5-10.1) mg/dl Magnesium 2.3 (1.8-2.4) mg/dl Total Bilirubin 0.5 (0.2-1) mg/dl AST 18 (15-37) U/L ALT 24 (12-78) U/L Alkaline Phosphatase 68 (45-117) U/L Troponin I < 0.015 (0-0.045) ng/ml Total Protein 7.4 (6.4-8.2) gm/dl Albumin 4.1 (3.4-5.0) gm/dl Globulin 3.3 (2.5-4.0) gm/dl Albumin/Globulin Ratio 1.2 (0.9-2) Lipase 112 (73-393) U/L COVID-19 Eval Order SARS-CoV-2 (PCR) (Negative) Influenza Type A (PCR) (Neg) Influenza Type B (PCR) (Neg) RSV (RT-PCR) (Neg) 09/30/20 09/30/20 09/30/20 Range/Units 16:30 17:43 17:43 WBC (4.8-10.8) K/uL RBC (4.2-5.4) M/uL Hgb (12.0-16.0) g/dL Hct (37-47) % MCV (80-100) fL MCH (25-34) pg MCHC (32-36) g/dL RDW Std Deviation (36.4-46.3) fL RDW Coeff of Della (11.5-14.5) % Plt Count (130-400) K/uL MPV (7.4-10.4) fL Immature Gran % (Auto) % Neut % (Auto) % Lymph % (Auto) % [place] % (Auto) % Eos % (Auto) % Baso % (Auto) % Neut # (Auto) (1.4-6.5) K/uL Lymph # (Auto) (1.2-3.4) K/uL [place] # (Auto) (0.11-0.59) K/uL Eos # (Auto) (0-0.5) K/uL Baso # (Auto) (0-0.2) K/uL Immature Gran # (Auto) (0.00-0.02) K/uL PT (9.0-12.0) Seconds INR (0.9-1.1) APTT 27.0 (21.0-31.0) Seconds PTT Ratio 1.0 D-Dimer (0-500) ug/L FEU Sodium (136-145) mmol/L Potassium (3.5-5.1) mmol/L Chloride (98-107) mmol/L Carbon Dioxide (21-32) mmol/L Anion Gap (3-11) BUN (7-18) mg/dl Creatinine (0.6-1.2) mg/dl Est Cr Clr Drug Dosing ml/min Est GFR ( Amer) Est GFR (Non-Af Amer) BUN/Creatinine Ratio (10-20) Glucose (70-99) mg/dl Calcium (8.5-10.1) mg/dl Magnesium (1.8-2.4) mg/dl Total Bilirubin (0.2-1) mg/dl AST (15-37) U/L ALT (12-78) U/L Alkaline Phosphatase (45-117) U/L Troponin I (0-0.045) ng/ml Total Protein (6.4-8.2) gm/dl Albumin (3.4-5.0) gm/dl Globulin (2.5-4.0) gm/dl Albumin/Globulin Ratio (0.9-2) Lipase (73-393) U/L COVID-19 Eval Order CovFluRsv at [facility] SARS-CoV-2 (PCR) NEGATIVE (Negative) Influenza Type A (PCR) Negative (Neg) Influenza Type B (PCR) Negative (Neg) RSV (RT-PCR) Negative (Neg) Administered Medications Bupropion HCl (Bupropion Sr 100 Mg Tabcr) 200 mg PO BID KINDRA Stop: 10/30/20 21:59 Last Admin: 09/30/20 22:13 Dose: 200 mg Documented by: [id number] Famotidine (Famotidine 20 Mg Tab) 20 mg PO BID KINDRA Stop: 10/30/20 21:59 Last Admin: 09/30/20 22:13 Dose: 20 mg Documented by: [id number] Metoprolol Succinate (Metoprolol Succ 50mg Ext Rel Tab) 150 mg PO BID KINDRA Stop: 10/30/20 21:59 Last Admin: 09/30/20 22:13 Dose: 150 mg Documented by: [id number] Discontinued Medications Ioversol (Optiray 350 500ml) 121 ml IV ONCE ONE Stop: 09/30/20 17:58 Last Admin: 09/30/20 17:58 Dose: 121 ml Documented by: [id number] Nitroglycerin (Nitroglycerin 2% Ointment 30gm Tube) 1 inch EXT NOW STA Stop: 09/30/20 16:31 Last Admin: 09/30/20 16:46 Dose: 1 inch Documented by: [id number] Imaging Data Radiologist's Impression: Chest X-Ray 09/30/20 16:30 XR chest 1V portable CLINICAL HISTORY: Chest Pain COMPARISON STUDY: Chest radiograph August 17, 2020. FINDINGS: Lung volumes are normal. Linear bilateral opacities favor atelectasis or scarring. There is no pneumothorax or pleural effusion. Cardiac size is normal. Mediastinal contours are normal. There is no evidence for pulmonary edema. IMPRESSION: No acute cardiopulmonary findings. ACT 112: Negative or not required by law. Electronically signed by: Guru Barron M.D. 09/30/2020 5:09 PM Chest CTA 09/30/20 17:39 CT ANGIOGRAPHY OF THE CHEST, PULMONARY EMBOLUS PROTOCOL CLINICAL HISTORY: PE, please also eval aorta chest pain. Back pain. COMPARISON STUDY: Chest radiograph August 17, 2020 and September 30, 2020. TECHNIQUE: Following IV administration of 121 mL of Optiray, helical axial images of the chest were obtained utilizing the pulmonary embolus protocol. Maximal intensity projections and sagittal and coronal reformats were viewed on an independent 3D workstation. IV contrast was administered without complicati on. Automated exposure control was utilized for the study. A dose lowering technique was utilized adhering to the principles of ALARA. CT DOSE: 600.53 mGy.cm FINDINGS: No pulmonary emboli are identified. There is no thoracic aortic dissection. Size of the heart is at the upper limits of normal. No enlarged axillary, mediastinal or hilar lymph nodes are present. Central airways are patent. There are mild ground glass opacities with mosaic attenuation within the lungs. A few circumscribed nodules within the right upper lobe measure up to 9 mm. There is lucency of the adjacent lung parenchyma. The findings favor bronchiolitis. Given abnormal appearing bronchi leading to these nodules. There is no consolidation. No pneumothorax or pleural effusion is noted. A 1.1 cm right hepatic lobe cyst is incidentally noted. IMPRESSION: 1. No pulmonary emboli identified. 2. No thoracic aortic dissection. 3. Mild groundglass opacities within the lungs with mosaic attenuation. This may reflect air-trapping. 4. A few circumscribed nodules with lucency of the adjacent lung parenchyma with in the right upper lobe. 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 The findings are likely benign. A follow-up chest CT in 6 months to ensure stability is recommended. ACT 112: Negative or not required by law. Electronically signed by: Guru Barron M.D. 09/30/2020 6:17 PM Discharge Plan Visit Data Chief Complaint: Chest Pain Stated Complaint: CHEST PAIN ED Provider: Antonino Lyn Discharge Problem: Precordial chest pain, SOB (shortness of breath), Acute electrocardiogram changes, History of IA (myocardial infarction) Patient Disposition: Admitted As Inpatient Condition: Fair Discharge Instructions Interventions: ED Discharge Assessment Last Done: 09/30/20 20:36
[2020-09-30 16:40] LABS: Basophils # (auto) 0.03 K/uL (0-0.2); Basophils % (auto) 0.4 %; Eosinophils # (auto) 0.12 K/uL (0-0.5); Eosinophils % (auto) 1.7 %; Hematocrit (blood only) 40.4 % (37-47); Hemoglobin 13.7 g/dL (12.0-16.0); Immature Granulocytes # (auto) 0.01 K/uL (0.00-0.02); Immature Granulocytes % (auto) 0.1 %; Lymphocytes # (auto) 1.84 K/uL (1.2-3.4); Lymphocytes % (auto) 26.6 %; Mean Corpuscular Hemoglobin 30.3 pg (25-34); Mean Corpuscular Hgb Conc 33.9 g/dL (32-36); Mean Corpuscular Volume 89.4 fL (80-100); Mean Platelet Volume 10.3 fL (7.4-10.4); Monocytes # (auto) 0.69 K/uL (0.11-0.59); Neutrophils # (auto) 4.23 K/uL (1.4-6.5); Neutrophils % (auto) 61.2 %; Platelet Count 286 K/uL (130-400); RDW Coefficient of Variation 13.1 % (11.5-14.5); RDW Standard Deviation 42.9 fL (36.4-46.3); Red Blood Count 4.52 M/uL (4.2-5.4); White Blood Count 6.92 K/uL (4.8-10.8)
[2020-09-30 16:52] LABS: D Dimer < 190 ug/L FEU (0-500); INR 1.1 (0.9-1.1); Prothrombin Time 11.2 Seconds (9.0-12.0)
[2020-09-30 17:10] LABS: Alanine Aminotransferase 24 U/L (12-78); Albumin Level 4.1 gm/dl (3.4-5.0); BUN Creatinine Ratio 22.5 (10-20); Blood Urea Nitrogen 23 mg/dl (7-18); Calcium 9.1 mg/dl (8.5-10.1); Carbon Dioxide 24 mmol/L (21-32); Chloride 105 mmol/L (98-107); Creatinine Clr Calc Pharmacy 61.6 ml/min; Est GFR (African American) 67.3; Est GFR (Non-African American) 58.1; Glucose 88 mg/dl (70-99); Lipase 112 U/L (73-393); Magnesium 2.3 mg/dl (1.8-2.4); Potassium 4.2 mmol/L (3.5-5.1); Sodium 137 mmol/L (136-145)
--- NOTE | 2020-09-30 17:10 | XRay Report ---
XR chest 1V portable CLINICAL HISTORY: Chest Pain COMPARISON STUDY: Chest radiograph August 17, 2020. FINDINGS: Lung volumes are normal. Linear bilateral opacities favor atelectasis or scarring. There is no pneumothorax or pleural effusion. Cardiac size is normal. Mediastinal contours are normal. There is no evidence for pulmonary edema. IMPRESSION: No acute cardiopulmonary findings. ACT 112: Negative or not required by law. Electronically signed by: Guru Barron M.D. 09/30/2020 5:09 PM
[2020-09-30 17:16] LABS: Albumin Globulin Ratio 1.2 (0.9-2); Alkaline Phosphatase 68 U/L (45-117); Aspartate Aminotransferase 18 U/L (15-37); Bilirubin,Total 0.5 mg/dl (0.2-1); Globulin 3.3 gm/dl (2.5-4.0); Total Protein 7.4 gm/dl (6.4-8.2); Troponin I < 0.015 ng/ml (0-0.045)
[2020-09-30] MEDS ORDERED: OPTIRAY 350 500ml IV ONE (17:57)
--- NOTE | 2020-09-30 18:18 | CT Scan Report ---
CT ANGIOGRAPHY OF THE CHEST, PULMONARY EMBOLUS PROTOCOL CLINICAL HISTORY: PE, please also eval aorta chest pain. Back pain. COMPARISON STUDY: Chest radiograph August 17, 2020 and September 30, 2020. TECHNIQUE: Following IV administration of 121 mL of Optiray, helical axial images of the chest were o btained utilizing the pulmonary embolus protocol. Maximal intensity projections and sagittal and cor onal reformats were viewed on an independent 3D workstation. IV contrast was administered without co mplication. Automated exposure control was utilized for the study. A dose lowering technique was ut ilized adhering to the principles of ALARA. CT DOSE: 600.53 mGy.cm FINDINGS: No pulmonary emboli are identified. There is no thoracic aortic dissection. Size of the he art is at the upper limits of normal. No enlarged axillary, mediastinal or hilar lymph nodes are pres ent. Central airways are patent. There are mild ground glass opacities with mosaic attenuation within the lungs. A few circumscribed nodules within the right upper lobe measure up to 9 mm. There is luce ncy of the adjacent lung parenchyma. The findings favor bronchiolitis. Given abnormal appearing bronc hi leading to these nodules. There is no consolidation. No pneumothorax or pleural effusion is noted. A 1.1 cm right hepatic lobe cyst is incidentally noted. IMPRESSION: 1. No pulmonary emboli identified. 2. No thoracic aortic dissection. 3. Mild groundglass opacities within the lungs with mosaic attenuation. This may reflect air-trapping . 4. A few circumscribed nodules with lucency of the adjacent lung parenchyma within the right upper lo be. 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 The findings are likely benign . A follow-up chest CT in 6 months to ensure stability is recommended. ACT 112: Negative or not required by law. Electronically signed by: Guru Barron M.D. 09/30/2020 6:17 PM
--- NOTE | 2020-09-30 18:59 | History & Physical Report ---
Date of Service September 30, 2020 Assessment & Plan (1) SOB (shortness of breath): Concerned that this is a very atypical presentation of unstable angina. No evidence of fluid overload or CHF. No diuresis indicated. Will trend troponins Repeat echo Check TSH and fasting lipids We will ask cardiology to evaluate Continue current medications, including high intensity atorvastatin, low-dose aspirin, Plavix, and twice daily metoprolol succinate (2) Hypercholesterolemia: On atorvastatin 80 mg daily as noted (3) Chronic kidney disease, stage 3: Creatinine 1.02 which appears to be the patient's baseline History of Present Illness Primary Care Provider: Matthew Rogers MD This is a 65-year-old female with past medical history of recent non-STEMI that presents today complaining of shortness of breath and dyspnea on exertion. Patient is a good historian. Patient tells me that she has had some issues with dyspnea over the past 3 days. She noted that she started having very mild symptoms at rest but these became much more severe with activity. She cited an incident yesterday while she was walking her dog over hills, she felt that her stamina was much less than usual. Overnight, she had almost orthopnea-like symptoms when she came very congested and could not sleep flat. She does not report any weight gain or edema. Earlier today, she started to have some vague pain in her back which made her more concerned considering the constellation of symptoms and presented to the emergency room for further evaluation. On ER evaluation, patients vital signs are stable. She seems to be comfortable at rest. Evaluation included chest x-ray, EKG, laboratory work all of which were normal. 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 A repeat CT was suggested in 6 months. On review of her chart, she had a previous cardiac catheterization April 2020. This had been negative for significant coronary artery disease and no stent was placed. She did have evidence of LVOT with anterior motion of the mitral leaflet. She also had an echocardiogram in June of this year, showed no evidence of LVOT which had been apparent on her previous cardiac catheterization. Last cardiac visit was in 08/21/2020 where she saw an increase of her metoprolol but had been considered otherwise stable and advised to keep well-hydrated. Allergies Allergy/AdvReac Type Severity Reaction Status Date / Time No Known Allergies Allergy Verified 09/30/20 17:30 Home Medications Medication Instructions Recorded Confirmed Type famotidine 20 mg tablet 20 mg PO BID #180 tab 01/13/19 09/30/20 History risperidone 1 mg tablet 1 mg PO QAM tab 01/13/19 09/30/20 History sumatriptan succinate 100 mg tablet 100 mg PO UD PRN #9 tab 01/13/19 09/30/20 History bupropion HCl 200 mg PO BID 05/09/20 09/30/20 History aspirin 81 mg PO QAM #30 tab 05/11/20 09/30/20 Rx clopidogrel 75 mg tablet 75 mg PO QAM #90 tab 06/13/20 09/30/20 Rx atorvastatin 80 mg PO DAILY 08/17/20 09/30/20 History calcium carbonate-vitamin D3 1 tab PO DAILY 08/22/20 09/30/20 History cholecalciferol (vitamin D3) 50 mcg PO DAILY 09/30/20 09/30/20 History [Vitamin D3] metoprolol succinate 150 mg PO BID 09/30/20 09/30/20 History Past Med/Surg History Medical History Chronic kidney disease, stage 3 Depression with anxiety Herpes simplex vaginal HLD (hyperlipidemia) Left ventricular outflow tract obstruction Migraine NSTEMI (non-ST elevated myocardial infarction) 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 Family/Other Breast cancer Great grandmother Denies family history of Ovarian cancer Colorectal cancer Social History Smoking Status: Former smoker Tobacco Type: Cigarettes Age Quit Using Tobacco: 31; Second Hand Exposure: No; Hx Alcohol Use: Yes Alcohol type: wine Hx Substance Use: No Preferred Language: Persian Communication Ability: Effective Conference Specialist Required: No Beliefs That Will Affect Care: None Current Living Situation: Spouse current occupational status: retired Feels Safe at Home: Yes Assistive Devices: None Review of Systems Constitutional: + sweats; no fever, no chills, no body aches, no fatigue, no malaise and no weakness Respiratory: + dyspnea and + dyspnea on exertion; no cough, no chest congestion, no pain on inspiration and no wheezing Cardiovascular: + dyspnea and + dyspnea on exertion; no chest pain, no chest pain at rest, no radiating jaw, neck or arm pain, no syncope, no edema, no calf pain and no claudication Gastrointestinal: no abdominal pain, no belching, no heartburn, no nausea, no vomiting and no coffee ground emesis Genitourinary: no dysuria, no difficulty urinating, no urinary frequency and no urinary hesitancy Musculoskeletal: + back pain; no neck pain, no joint pain, no swelling, no stiffness and no muscle weakness Integumentary: as per Subjective / HPI Neurologic: as per Subjective / HPI Psychiatric: as per Subjective / HPI Endocrine: as per Subjective / HPI Physical Exam Constitutional: + well hydrated, well groomed and comfortable; no acute d istress Neck: trachea midline, no thyromegaly Respiratory: normal respiratory effort, lungs clear to auscultation Auscultation: lungs clear to auscultation bilaterally Cardiovascular: Rate/Rhythm: regular rate, regular rhythm and + bradycardic Heart Sounds: normal S1 and normal S2 Vessels: no JVD and no carotid bruit Gastrointestinal (Abdomen): normal bowel sounds, soft, nontender, no hepatosplenomegaly Musculoskeletal: no cyanosis or clubbing, extremities motor strength 5/5 Skin: no rashes, warm and dry Neurologic: PERRL, EOMI, accommodation nl, no face palsy, no dysarthria Psychiatric: A+Ox3, euthymic affect Results & Data Results & Data ([facility]) Vital Signs (Past 12 Hours) Vital Signs Temp Pulse Resp BP Pulse Ox 09/30/20 18:29 61 19 143/89 H 97 09/30/20 16:54 43 L 14 157/78 H 94 09/30/20 16:49 63 15 119/79 96 09/30/20 16:18 36.9 C 64 16 139/86 95 PG Care Time/CCT Total # of Minutes Spent Total Time Spent with Patient: Total time spent is greater than 50% in coordination of care (as documented) at patient's floor/unit and/or counseling patient: Coding Diagnoses SOB (shortness of breath) R06.02 Hypercholesterolemia E78.00 Chronic kidney disease, stage 3 N18.3
[2020-09-30 19:43] LABS: Influenza A virus by PCR Negative (Neg); Influenza B virus by PCR Negative (Neg); RSV by PCR Negative (Neg); SARS CoV2 RNA(COVID-19) InHosp NEGATIVE (Negative)
[2020-09-30] MEDS ORDERED: ONDANSETRON INJ 2 MG/ML 2 ML VIAL IV PRN (21:23)
[2020-09-30] MEDS ORDERED: NITROGLYCERIN SL 0.4 MG/TAB TAB SL PRN (21:23)
[2020-09-30] MEDS ORDERED: ACETAMINOPHEN 325 MG TAB PO PRN (21:23)
[2020-09-30] MEDS: METOPROLOL SUCC 50MG EXT REL TAB PO SCH (22:13)
[2020-09-30] MEDS: buPROPion SR 100 MG TABCR PO SCH (22:13)
[2020-09-30] MEDS: FAMOTIDINE 20 MG TAB PO SCH (22:13)
[2020-10-01 03:26] LABS: Basophils # (auto) 0.02 K/uL (0-0.2); Basophils % (auto) 0.3 %; Eosinophils # (auto) 0.17 K/uL (0-0.5); Eosinophils % (auto) 2.5 %; Hematocrit (blood only) 39.7 % (37-47); Hemoglobin 13.3 g/dL (12.0-16.0); Immature Granulocytes # (auto) 0.01 K/uL (0.00-0.02); Immature Granulocytes % (auto) 0.1 %; Lymphocytes # (auto) 2.34 K/uL (1.2-3.4); Mean Corpuscular Hemoglobin 30.6 pg (25-34); Mean Corpuscular Hgb Conc 33.5 g/dL (32-36); Mean Corpuscular Volume 91.5 fL (80-100); Mean Platelet Volume 10.4 fL (7.4-10.4); Monocytes # (auto) 0.68 K/uL (0.11-0.59); Monocytes % (auto) 10.2 %; Neutrophils # (auto) 3.47 K/uL (1.4-6.5); Neutrophils % (auto) 51.9 %; Platelet Count 284 K/uL (130-400); RDW Coefficient of Variation 13.4 % (11.5-14.5); RDW Standard Deviation 44.7 fL (36.4-46.3); Red Blood Count 4.34 M/uL (4.2-5.4); White Blood Count 6.69 K/uL (4.8-10.8)
[2020-10-01 03:42] LABS: BUN Creatinine Ratio 17.6 (10-20); Blood Urea Nitrogen 17 mg/dl (7-18); Carbon Dioxide 26 mmol/L (21-32); Chloride 107 mmol/L (98-107); Creatinine Clr Calc Pharmacy 64.6 ml/min; Est GFR (African American) 71.5; Est GFR (Non-African American) 61.7; Glucose 80 mg/dl (70-99); Magnesium 2.4 mg/dl (1.8-2.4); Potassium 3.9 mmol/L (3.5-5.1); Sodium 140 mmol/L (136-145)
[2020-10-01 03:53] LABS: Chol HDL Ratio 3; Cholesterol 200 mg/dl (0-200); HDL Cholesterol 65 mg/dl; LDL Cholesterol Calculated 108 mg/dl; Thyroid Stimulating Hormone 0.906 uIu/ml (0.300-4.500); Triglycerides 137 mg/dl (0-150); Troponin I < 0.015 ng/ml (0-0.045); VLDL Cholesterol 27 mg/dl
[2020-10-01 07:21] LABS: Estimated Average Glucose 117 mg/dl; Hemoglobin A1C 5.7 % (4.5-5.6)
[2020-10-01] MEDS: buPROPion SR 100 MG TABCR PO SCH (08:12)
[2020-10-01] MEDS: FAMOTIDINE 20 MG TAB PO SCH (08:12)
[2020-10-01] MEDS: METOPROLOL SUCC 50MG EXT REL TAB PO SCH (08:19)
[2020-10-01] MEDS ORDERED: CHOLECALCIFEROL 1,000 UNITS 25 MCG TAB PO SCH (09:00)
[2020-10-01] MEDS ORDERED: ASPIRIN 81 MG ECTAB PO SCH (09:00)
[2020-10-01] MEDS ORDERED: ATORVASTATIN 40 MG TAB PO SCH (09:00)
[2020-10-01] MEDS ORDERED: risperiDONE 1 MG TABLET PO SCH (09:00)
[2020-10-01] MEDS ORDERED: CLOPIDOGREL BISULFATE 75 MG TAB PO SCH (09:00)
[2020-10-01] MEDS ORDERED: CALCIUM 600MG + VIT D 400 IU TAB PO SCH (09:00)
--- NOTE | 2020-10-01 13:20 | Discharge Summary ---
Date of Service October 01, 2020 Admission HPI Per Admitting Provider This is a 65-year-old female with past medical history of recent non-STEMI that presents today complaining of shortness of breath and dyspnea on exertion. Patient is a good historian. Patient tells me that she has had some issues with dyspnea over the past 3 days. She noted that she started having very mild symptoms at rest but these became much more severe with activity. She cited an incident yesterday while she was walking her dog over hills, she felt that her stamina was much less than usual. Overnight, she had almost orthopnea-like symptoms when she came very congested and could not sleep flat. She does not report any weight gain or edema. Earlier today, she started to have some vague pain in her back which made her more concerned considering the constellation of symptoms and presented to the emergency room for further evaluation. On ER evaluation, patients vital signs are stable. She seems to be comfortable at rest. Evaluation included chest x-ray, EKG, laboratory work all of which were normal. 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 A repeat CT was suggested in 6 months. On review of her chart, she had a previous cardiac catheterization April 2020. This had been negative for significant coronary artery disease and no stent was placed. She did have evidence of LVOT with anterior motion of the mitral leaflet. She also had an echocardiogram in June of this year, showed no evidence of LVOT which had been apparent on her previous cardiac catheterization. Last cardiac visit was in 08/21/2020 where she saw an increase of her metoprolol but had been considered otherwise stable and advised to keep well-hydrated. Admission Exam Per Admitting Provider Constitutional: + well hydrated, well groomed and comfortable; no acute distress Neck: trachea midline, no thyromegaly Respiratory: normal respiratory effort, lungs clear to auscultation Auscultation: lungs clear to auscultation bilaterally Cardiovascular: Rate/Rhythm: regular rate, regular rhythm and + bradycardic Heart Sounds: normal S1 and normal S2 Vessels: no JVD and no carotid bruit Gastrointestinal (Abdomen): normal bowel sounds, soft, nontender, no hepatosplenomegaly Musculoskeletal: no cyanosis or clubbing, extremities motor strength 5/5 Skin: no rashes, warm and dry Neurologic: PERRL, EOMI, accommodation nl, no face palsy, no dysarthria Psychiatric: A+Ox3, euthymic affect Principal Diagnosis Dyspnea on Exertion Discharge Exam Constitutional WD/WN, vitals as above cooperative; no acute distress Eyes + anicteric sclerae ENMT external ear and nose normal, oropharynx normal Neck normal visual inspection and trachea midline Respiratory normal respiratory effort; no respiratory distress Cardiovascular RRR, no murmur, no edema Heart Sounds: normal S1 and normal S2 Gastrointestinal (Abdomen) normal bowel sounds, soft, nontender, no hepatosplenomegaly Skin no rashes, warm and dry Psychiatric A+Ox3, euthymic affect Discharge Data Allergies Allergy/AdvReac Type Severity Reaction Status Date / Time No Known Allergies Allergy Verified 09/30/20 17:30 Consultations 09/30/20 18:00 ED Decision to Admit Stat Ordered Studies 09/30/20 17:39 CT angio chest PE protocol Stat Hospital Course (1) SOB (shortness of breath): Mrs. Her is a 65 yo woman with a PMHx of non-STEMI (in April 2020) and HLD who presented for dyspnea on exertion. There was initial concern symptoms represented an anginal equivalent. Troponins x 3 were negative. Initial EKG showed T wave inversion in V3 only. Stress Echo was performed, which was negative (although patient did not reach max HR due to beta blockade). Echo showed structurally normal heart with EF 60-65%; no regional wall motion abnormalities. HbA1c was checked as part of ACS work up and returned slightly elevated at 5.7, placing patient in prediabetic range. Lipid panel was drawn showing a total cholesterol of 200, LDL of 108, HDL of 65, ratio of 3. Of note, patient had a catheterization procedure 2 months ago that was totally clean. Thus, symptoms were not felt to be consistent with cardiac disease. Recommend she continue her high intensity statin, low dose ASA, plavix and twice daily metoprolol succinate. Chest CTA was ordered, which showed no evidence of a PE. It did reveal mild ground glass opacities with mosaic attenuation within the lungs. A few circumscribed nodules within the right upper lobe measure up to 9 mm. The findings favor bronchiolitis. Given patient's description of mild cough and flared allergy symptoms, suspect she is suffering from a bronchitis (viral, bacterial or allergic). Patient did admit to not being compliant with daily allergic regimen. Recommend she resume Flonase, Claritin and incorporate netti pot. In the event she is suffering from a bacterial component, I did prescribe her a 3 day course of azithromax with an albuterol rescue inhaler for prn use. Recommend consideration of PFTs in several weeks to assess for underlying lung disease. (2) Hypercholesterolemia: On atorvastatin 80 mg daily as noted (3) Chronic kidney disease, stage 3: Creatinine 1.02 which appears to be the patient's baseline Total Time Total Time Spent Total Time Spent (In Minutes): <30 Discharge Plan Discharge Items Patient Disposition: Home - Self-Care Reason For Visit: DYSPNEA Discharge Diagnosis: Shortness of breath Condition on Discharge: Fair Activity: Resume your previous activity Non-emergency contact: Primary Care Provider Call non-emergency contact if: your symptoms worsen Follow-up/Referrals: Matthew Rogers MD [Primary Care Provider] - 10/04/20 9:10 am Diet: Heart Healthy Addtl Attending Provider Instructions: You were hospitalized at [facility] for evaluation of shortness of breath and chest heaviness. Your EKG showed no specific changes that would be suggestive of a heart attack. We beatrice 3 troponin levels (blood markers of cardiac stress) and all were totally negative. You also had a stress test while you were here, which was also negative for cardiac ischemia (or lack of blood flow to the heart muscle). The combination of these negative tests, along with a totally normal cardiac catheterization 2 months ago suggest a "clean bill of health" for the heart. A cat scan of your chest was ordered and showed evidence of lung inflammation. It is possible you are suffering from a bronchitis (either viral, bacterial or allergy induced). To treat your allergies, we recommend you use flonase and take Claritin on a daily basis. You should also use your netti pot (nasal saline rinse) on a daily basis during allergy season. In the event there is a bacterial component, we will treat with you a short course of an antibiotic known as Azithromycin. A script for this was sent to your pharmacy. We also provided you with an inhaler of albuterol to use on an as needed basis if you are feeling short of breath, or a sensation of chest heaviness. Please follow up with your family doctor within 1-2 weeks of discharge. In several weeks/months, it may be hill to get pulmonary function tests performed to assess your baseline lung capacity. Your family doctor can help to arrange this testing. Pending Studies at Discharge: No Stand-Alone Forms: My [facility], Smoking Cessation Medications and DC Order Prescriptions: New albuterol sulfate [ProAir HFA] 90 mcg/actuation HFA aerosol inhaler 1 inh inhalation Q6H PRN (Reason: shortness of breath or wheezing) Qty: 6.7 RF: 1 azithromycin [Zithromax TRI-ASHLEY] 500 mg tablet 500 mg PO DAILY 3 Days Qty: 3 RF: 0 Continued clopidogrel 75 mg tablet 75 mg PO QAM Qty: 90 RF: 3 calcium carbonate-vitamin D3 1 tab PO DAILY RF: 0 risperidone 1 mg tablet 1 mg PO QAM RF: 0 famotidine 20 mg tablet 20 mg PO BID Qty: 180 RF: 0 sumatriptan succinate 100 mg tablet 100 mg PO UD PRN (Reason: Migraine Headache) Qty: 9 RF: 0 bupropion HCl 200 mg tablet sustained-release 12 hr 200 mg PO BID RF: 0 aspirin 81 mg Tablet,Delayed Release (Dr/Ec) 81 mg PO QAM Qty: 30 RF: 0 atorvastatin 80 mg tablet 80 mg PO DAILY RF: 0 metoprolol succinate 100 mg tablet extended release 24 hr 150 mg PO BID RF: 0 cholecalciferol (vitamin D3) [Vitamin D3] 50 mcg (2,000 unit) Tablet 50 mcg PO DAILY RF: 0 Discharge Orders: Discharge Order (Routine); Ordered 10/01/20 Ordered By: Davina Perales Admission Data Admit Date/Time: 09/30/20 19:06 Attending Provider: Orlin Bach Admit Provider: Wesley Dorado Primary Care Provider: Matthew Rogers Other Providers: Wesley Dorado Other Interventions: Discharge Summary Assessment (RN) Last Done: 10/01/20 13:00 Supervising Physician Co-Signing Physician Notes I personally examined the patient and verified all bowman points of history and exam, discussed case, and agree with decision making with Dr Perales Feeling about the same. Stress test went well. CT reviewed with patient. She notes that she has a lot of allergies this time year. Is not really doing anything to treat them, as she feels she is already on a lot of medicines and does not want to take anything that does not necessary. General she is awake and alert pleasant no distress. HEENT normocephalic atraumatic mucous membranes moist. Breathing unlabored no accessory muscle use good effort and lungs are clear without rales rhonchi or wheezes. Skin shows no rashes no pallor or icterus. Neuro shows no focal deficits. Chest heaviness/dyspneaappears to be noncardiac. CT chest fits with a bit of a bronchitis/atypical pneumonia type picture, this, corroborated with her bad allergies this season, suggest that probably she has a bit of an allergic possible secondary bacterial overgrowth process going on. She is quite stable. Stable for discharge to homeZithromax and albuterol for the lung pathology, Flonase twice daily and nasal irrigation for the allergies. Ongoing PCP follow- up. If she does not improve well, then could consider PFTs in more of a chronic lung picture, although I doubt this will be likely. Otherwise as above Resident Activity Tracking Resident Involvement: Resident Care Provided Care Provided: Adult [facility]
--- NOTE | 2020-10-01 18:25 | Billing Data ---
Date of Service October 01, 2020 Coding Level of Care Code 59469 OBS Care - Discharge
--- NOTE | 2020-10-01 22:26 | XCELERA ---
[id number]
--- NOTE | 2020-10-02 06:08 | Electrocardiogram Report ---
Test Reason : Blood Pressure : / mmHG Vent. Rate : 057 BPM Atrial Rate : 057 BPM P-R Int : 158 ms QRS Dur : 076 ms QT Int : 410 ms P-R-T Axes : 016 031 007 degrees QTc Int : 399 ms Sinus bradycardia Nonspecific T wave abnormality Abnormal ECG When compared with ECG of 18-Aug-2020 05:56, Nonspecific T wave abnormality is now Present in Anterior leads Confirmed by Anderson Tyson ([id number]) on 10/02/2020 6:08:22 AM Referred By: Matthew Rogers Confirmed By:Anderson Tyson
--- NOTE | 2020-10-02 06:25 | Electrocardiogram Report ---
Test Reason : Blood Pressure : / mmHG Vent. Rate : 052 BPM Atrial Rate : 052 BPM P-R Int : 166 ms QRS Dur : 096 ms QT Int : 430 ms P-R-T Axes : 035 055 030 degrees QTc Int : 399 ms Sinus bradycardia Otherwise normal ECG When compared with ECG of 30-SEP-2020 17:36, Nonspecific T wave abnormality no longer evident in Anterior leads Confirmed by Anderson Tyson ([id number]) on 10/02/2020 6:24:57 AM Referred By: Matthew Rogers Confirmed By:Anderson Tyson
== END 2020-10-01 15:00 | disposition home or self-care (01) ==
LOC: 2S 16:16 → ED 16:16 → SUATTDRO 19:06 → 2S 20:36